=== PATIENT | female | born 1940 | race Caucasian/White ===

== ENCOUNTER 2016-10-13 04:58 | Inpatient (IN) | payer OTHER, MEDICARE ==
--- NOTE | 2016-09-25 09:55 | PAT Medication Instructions ---
Service Date Sep 25, 2016. Current Home Medication List Biotin (Biotin), 1 CAN PO QPM Cyanocobalamin (Vitamin B-12 Inj), 1,000 MCG IM MONTHLY Dorzolamide Hcl-Timolol Maleat (Cosopt Oph), 1 DROPS OP BID Hydrocortisone 2.5% (Rectal) (Anusol-Hc 2.5%), 1 APPLN TOP DAILY PRN for hemorrhoids Krill Oil (Krill Oil), 500 MG PO QPM Levothyroxine Sodium (Levothyroxine Sodium), 1 TAB PO QAM Polyethylene Glycol 3350 (Miralax), 17 GM PO DAILY PRN for Constipation Potassium Chloride (Micro-K Ext Rel), 30 MEQ PO NOON Probiotic Product (Probiotic & Acidophilus F), 1 CAP PO QAM Psyllium (Metamucil Fiber), 1 DOSE PO QD@16 Triamterene/Hctz (Maxzide 75MG/50MG), 1 TAB PO QAM Medication Instructions For Your Scheduled Surgery - Continue as directed: Cyanocobalamin (Vitamin B-12 Inj), 1,000 MCG IM MONTHLY Hydrocortisone 2.5% (Rectal) (Anusol-Hc 2.5%), 1 APPLN TOP DAILY PRN for hemorrhoids - Hold the following medications 2 weeks prior to surgery: Biotin (Biotin), 1 CAN PO QPM Krill Oil (Krill Oil), 500 MG PO QPM - Hold the following medications the morning of surgery: Potassium Chloride (Micro-K Ext Rel), 30 MEQ PO NOON Probiotic Product (Probiotic & Acidophilus F), 1 CAP PO QAM Triamterene/Hctz (Maxzide 75MG/50MG), 1 TAB PO QAM Polyethylene Glycol 3350 (Miralax), 17 GM PO DAILY PRN for Constipation - Take the following medications the morning of surgery with a sip of water OTHERWISE NOTHING TO EAT OR DRINK AFTER MIDNIGHT: Dorzolamide Hcl-Timolol Maleat (Cosopt Oph), 1 DROPS OP BID Levothyroxine Sodium (Levothyroxine Sodium), 1 TAB PO QAM - Take the following medications as scheduled the night before surgery: Dorzolamide Hcl-Timolol Maleat (Cosopt Oph), 1 DROPS OP BID Psyllium (Metamucil Fiber), 1 DOSE PO QD@16 If you have any questions please call us at [phone] or [phone] or [phone]
[2016-09-25 10:38] LABS: BASO % 0.9 %; BASO ABS # 0.05 K/uL (0-0.2); COMPLETE YES; EOS % 5.6 %; HEMATOCRIT 43.7 % (37-47); IG% 0.4 %; LYMPH % 13.3 %; LYMPH ABS # 0.71 K/uL (1.2-3.4); MEAN CELL VOLUME 87.8 fL (80-100); MEAN CORPUSCULAR HEMOGLOBIN 29.7 pg (25-34); MEAN CORPUSCULAR HGB CONC 33.9 g/dl (32-36); MONO % 9.9 %; NEUT % 69.9 %; PLATELET COUNT 196 K/uL (130-400); RED BLOOD COUNT 4.98 M/uL (4.2-5.4); WHITE BLOOD COUNT 5.33 K/uL (4.8-10.8)
[2016-09-25 10:40] LABS: URINE APPEARANCE CLEAR (CLEAR); URINE BILIRUBIN NEG (NEG); URINE COLOR YELLOW; URINE NITRITE NEG (NEG); URINE PH 7.5 (4.5-7.5); UROBILINOGEN NEG (NEG); ZZUR CULT IF INDIC CLEAN CATCH NO
[2016-09-25 10:45] LABS: BUN/CREATININE RATIO 23.5 (10-20); CALCIUM 9.6 mg/dl (8.5-10.1); PARTIAL THROMBOPLASTIN RATIO 1.1; POTASSIUM 3.5 mmol/L (3.5-5.1); PROTHROMBIN TIME (PATIENT) 10.8 SECONDS (9.0-12.0)
[2016-09-25 10:53] LABS: MANUAL MICROSCOPIC REQUIRED? NO; REVIEW REQ? NO
[2016-09-25 10:58] LABS: ESTIMATED AVERAGE GLUCOSE 97 mg/dl; HA1C FLAG Normal (Normal)
--- NOTE | 2016-09-25 11:11 | DIAGNOSTIC IMAGING REPORT ---
CHEST PREADMISSION(PA/LAT) CLINICAL HISTORY: PAT preoperative evaluation COMPARISON STUDY: 12/19/2012 FINDINGS: Mild chronic interstitial fibrotic change. No focal infiltrative change. Diaphragms smooth. Calcific angles are sharp. IMPRESSION: Chronic change. No acute process. The above report was generated using voice recognition software. It may contain grammatical, syntax or spelling errors. Electronically signed by: Jack Morelos M.D. 09/25/2016 11:09 AM Dictated Date/Time: 09/25/2016 11:09 AM
--- NOTE | 2016-10-12 21:23 | HISTORY & PHYSICAL EXAMINATION ---
DATE OF ADMISSION: 10/13/2016 CHIEF COMPLAINT: Chronic right knee pain. HISTORY OF PRESENT ILLNESS: This is a 76-year-old female patient of Dr. Bansal, complaining of chronic right knee pain longstanding, now progressively getting worse. The patient has been diagnosed with end-stage osteoarthritis per clinical and radiographic exams. The patient has increased pain with weightbearing activities and her pain does interfere with her activities of daily living. 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 She has had a history of skin cancer. SOCIAL HISTORY: Nonsmoker, nondrinker. PAST SURGICAL HISTORY: Left knee surgery. FAMILY HISTORY: Noncontributory. REVIEW OF SYSTEMS: The patient complains of chronic right knee pain, otherwise denies any shortness of breath, chest pain, nausea, vomiting or joint complaints. MEDICATIONS: 1. Potassium 10 mEq t.i.d. 2. Levoxyl 88 mcg daily. 3. Hydrocortisone 2.5% administered through rectum at bedtime. 4. Maxzide daily. 5. Metamucil 1 scoop in 8 ounces of water daily. 6. MiraLax as needed. 7. Krill oil as needed. 8. Biotin 5000 mcg as needed. 9. Cosopt ophthalmic solution 22.3/6.8 1 drop in each eye twice daily. 10. Vitamin B12 daily. ALLERGIES: DARVOCET, ALENDRONATE SODIUM, MOLDS AND SMUT -- COUGH. PHYSICAL EXAMINATION: GENERAL: Well-developed, well-nourished 76-year-old female in no acute distress. She is alert and oriented x3 and pleasant. HEENT: Normocephalic, atraumatic. Extraocular motions are intact. Pupils are equal and reactive to light. HEART: Regular rate and rhythm, no murmurs appreciated. LUNGS: Clear. ABDOMEN: Soft and nontender. EXTREMITIES: She has medial joint line tenderness with a varus deformity. She has crepitation with passive range of motion. She has a mild effusion in her knee, she has 4/5 strength globally. NEUROLOGIC: Neurovascularly, she is intact in her right lower extremity. DIAGNOSES: Right knee end-stage osteoarthritis with a history of hypertension, irregular heart beat, anxiety, hypothyroidism, pernicious anemia, spine problems, upper back problems, sciatica, hernia, obesity, decreased glomerular filtration rate, cancer. PLAN: The patient was advised of her diagnosis. Indications, risks, benefits, and postop course have all been reviewed. The patient wishes to proceed with a right total knee arthroplasty. Preoperative consent forms, preoperative testing and clearances will be obtained.
[2016-10-13] VITALS (9 sets, daily range): BP systolic 97–132; BP diastolic 57–81; PULSE 49–65; TEMP 35–36.6; O2SAT 93–97; Ht 160 cm; Wt 78.7 kg
[~2016-10-13] VITALS: Ht 160 cm; Wt 78.7 kg
[~2016-10-13 04:58] MED LIST: BIOT50006 PO; CYAN3INJ IM; DORZ1SOL6 OP; HYDR2.5C37 TOP; KRIL1000 PO; LEVO88TA3 PO; MISCCAP77 PO; POLY335019 PO; POTA10CA28 PO; PSYL58.636 PO; TRIA75TA53 PO
[2016-10-13] MEDS ORDERED: CEFAZOLIN 1000MG/55 ML D5W 55 ML IV SCH (06:00)
[2016-10-13] MEDS ORDERED: ACETAMINOPHEN 500 MG TAB PO SCH (06:00)
[2016-10-13] MEDS ORDERED: CeleBREX 200 MG CAP PO SCH (06:00)
[2016-10-13] MEDS ORDERED: GABAPENTIN 300 MG CAP PO SCH (06:00)
[2016-10-13] MEDS ORDERED: METOCLOPRAMIDE HCL 10 MG TAB PO SCH (06:00)
[2016-10-13] MEDS ORDERED: DEXAMETHASONE 4 MG TAB PO SCH (06:00)
[2016-10-13] MEDS ORDERED: FAMOTIDINE 20 MG TAB PO SCH (06:00)
[2016-10-13] MEDS ORDERED: ROPIVACAINE 5MG/ML 30 ML 150 MG, BUPIVACAINE/EPINEPHR 0.5% MPF 30 ML, KETOROLAC TROMETH... INFIL SCH ×7 (06:00)
[2016-10-13] MEDS ORDERED: LACTATED RINGER'S 1000ML IV SCH (06:00)
[2016-10-13] MEDS ORDERED: BUPIVACAINE 0.5 % 5 MG/1 ML PF 10ML VIAL ONE (06:28)
[2016-10-13] MEDS ORDERED: BUPIVACAINE 0.25% 30 ML VIAL ONE (06:28)
[2016-10-13] MEDS: TRANEXAMIC ACID INJ 1,000 MG in SODIUM CHLORIDE 0.9% 100ML 100 ML IV SCH ×2 (06:30→07:08)
[2016-10-13] MEDS ORDERED: MIDAZOLAM HCL 1 MG/ML 2ML VIAL ONE ×2 (06:47)
[2016-10-13] MEDS ORDERED: FENTANYL CITRATE INJ 50 MCG/1 ML 2 ML VIAL ONE (06:47)
[2016-10-13] MEDS ORDERED: LIDOCAINE HCL 2% 2 ML VIAL (20MG/ML) ONE ×2 (06:54→08:06)
[2016-10-13] MEDS ORDERED: MEPERIDINE HCL 25 MG/ML CARP IV PRN (07:00)
[2016-10-13] MEDS ORDERED: HYDROmorphone INJ 1 MG/ML SYR IV PRN (07:00)
[2016-10-13] MEDS ORDERED: EpHEDrine SULFATE INJ 50 MG/ML AMP IV PRN (07:00)
[2016-10-13] MEDS ORDERED: LABETALOL HCL IV 5 MG/ML 20ML IV PRN (07:00)
[2016-10-13] MEDS ORDERED: ONDANSETRON INJ 2 MG/ML 2 ML VIAL IV PRN ×2 (07:00→09:15)
[2016-10-13] MEDS ORDERED: FENTANYL CITRATE INJ 50 MCG/1 ML 2 ML VIAL IV PRN (07:00)
[2016-10-13] MEDS ORDERED: ATROPINE SULFATE 0.1 MG/ML 5ML SYR IV PRN (07:00)
--- NOTE | 2016-10-13 07:16 | History & Physical Bridge Note ---
H&P Re-Evaluation Bridge Note: I have examined the patient, reviewed the History & Physical and in the interval since the performance of the History & Physical I have noted the following changes of clinical significance: No changes noted
[2016-10-13] MEDS ORDERED: ORTHO JOINT ANESTHETIC ONE (07:35)
[2016-10-13] MEDS ORDERED: POVIDONE-IODINE OP SOLN 30 ML BTL ONE (07:35)
[2016-10-13] MEDS ORDERED: BACITRACIN 50000 UNIT VIAL ONE (07:35)
[2016-10-13] MEDS ORDERED: PROPOFOL IV EMULSION 10 MG/ML 20 ML VIAL IV ONE (08:06)
[2016-10-13] MEDS ORDERED: ONDANSETRON INJ 2 MG/ML 2 ML VIAL ONE (08:06)
[2016-10-13] MEDS ORDERED: ROCURONIUM BROMIDE 10 MG/ML 5 ML VIAL IV ONE (08:06)
[2016-10-13] MEDS ORDERED: DEXAMETHASONE SOD INJ 4 MG/ML VIAL ONE (08:06)
[2016-10-13] MEDS ORDERED: EpHEDrine SULFATE 50MG/5ML SYR ONE (08:06)
[2016-10-13] MEDS ORDERED: GLYCOPYRROLATE INJ 0.2 MG/ML VIAL ONE (08:31)
[2016-10-13] MEDS ORDERED: NEOSTIGMINE METHYLSULFATE 5 MG/5 ML SYR ONE (08:31)
[2016-10-13] MEDS ORDERED: MAGNESIUM HYDROXIDE SUSP 30 ML UDC PO PRN (09:15)
--- NOTE | 2016-10-13 09:21 | [facility] Operative Report ---
Operative Report Operative Date Oct 13, 2016. Pre-Operative Diagnosis Right knee end-stage osteoarthritis Post-Operative Diagnosis same Procedure(s) Performed Right total knee arthroplasty Surgeon Dr. Ortiz Final Assembly And Packing Supervisor Surgeon(s) Adele De PA-C Estimated Blood Loss 5cc Findings Varus knee [id number] medial compartment and patellofemoral joint Specimens A. Right knee bone and tissue Drains 2 Hemovac Anesthesia Gen. adductor nerve block orthomix Complication(s) None Disposition Recovery Room / PACU Indications 76-year-old female with end-stage osteoarthritis of her knee right lower extremity status post previous left knee replacement. X-rays demonstrate varus knee [id number] medial compartment and moderately advanced patellofemoral DJD. Description of Procedure The patient was taken to the operating room and anesthetized under general anesthesia. Patient was placed supine on the the operating table. A pneumatic tourniquet was placed about the right upper thigh. The knee exam demonstrated flexible knee good range of motion aside from slight flexion contracture about 5 . An anterior longitudinal incision was made across the knee. Skin flaps were elevated. An incision was made into the medial retinaculum and extended up into the mid third of the quadriceps tendon and extended down to the tibial tubercle. Intra-articular findings demonstrated medial compartment bone-on- bone medial patella down to bone on medial facet and [id number] medial patellofemoral joint. The knee was exposed by excising cruciate ligaments and menisci. The infrapatellar fat pad was resected. The fat pad over the anterior femur at the upper aspect of the articular surface was resected for placement of the component in that area. A subperiosteal peel lateral release was performed around the patella The total knee arthroplasty system was utilized for the procedure. The custom femoral cutting guide was pinned in position. The distal femoral cut was made. The size 4, 5 in 1 cutting block was placed. The anterior posterior and chamfer cuts were made. The knee was extended and a free hand cut technique was performed to the patella. The patella with was measured and the width was reproduced using a 35 mm patella component. 3 drill holes are made for the patella component pegs. The tibia was then subluxed. The custom tibial cutting block was pinned in position and the proximal tibial cut was made with the oscillating saw. The size 4 tibial trial was externally rotated in line with the tibial tubercle and pinned in position. The punch for the stem was used and the collet was placed. Tibial trials were used for the insert. The size 13 trial gave balanced ligaments through full range of motion. Patella tracking was assessed with range of motion. The patella tracked centrally. The trials were removed. The Orthomix anesthetic cocktail was injected per protocol. The cut bone surfaces and soft tissue were copiously irrigated with antibiotic solution with bacitracin. The final components were cemented with Simplex cement. The final components were Saul and nephew journey 2.0 size 4 Oxinium right femoral component posterior stabilized with 4 primary tibial baseplate and 13 mm high flex polyethylene insert and 35 mm patella button domed. While the cement cured the Betadine soak was used per protocol. When the cement cured the knee was copiously irrigated with pulsatile lavage antibiotic solution with bacitracin. 2 drains were brought out laterally connected to Hemovac. The quadriceps tendon and medial retinaculum were closed with interrupted [id number] #1 Vicryl sutures. The knee was taken through full range of motion and repair was secure. The subcutaneous tissues were closed with 2-0 Vicryl sutures. The skin was closed with beau. A sterile dressing was applied. The tourniquet was let down and the patient had good capillary refill to the extremity. The patient tolerated the procedure well. My physician evaluation assistant Olman MATTSON assisted in the procedure including prepping draping leg positioning soft tissue retraction instrument management and assisted in the closure ,dressings application and will participate in postoperative care the patient. I attest to the content of the Intraoperative Record and any orders documented therein. Any exceptions are noted below.
--- NOTE | 2016-10-13 09:58 | DIAGNOSTIC IMAGING REPORT ---
RIGHT KNEE 1 OR 2 VIEWS ROUTINE HISTORY: 76 years-old Female AP/LATERAL IN PACU RIGHT KNEE Right COMPARISON: Spot fluoroscopic images of the right knee 03/04/2012 TECHNIQUE: Portable frontal and lateral views of the right knee FINDINGS: There has been recent right total knee arthroplasty with patellar resurfacing. There is no evidence of periprosthetic fracture or malalignment. Midline anterior skin beau are present along with expected postsurgical soft tissue swelling and deep tissue air. Surgical drain is in place. IMPRESSION: Status post left knee total joint arthroplasty and patellar resurfacing without complication identified. The above report was generated using voice recognition software. It may contain grammatical, syntax or spelling errors. Electronically signed by: Nicholas Mcclellan M.D. 10/13/2016 9:57 AM Dictated Date/Time: 10/13/2016 9:56 AM
--- NOTE | 2016-10-13 10:31 | Anesthesiology Progress Note ---
Anesthesia Post Op Note Date & Time Oct 13, 2016 at 10:31 Vital Signs Pain Intensity: 0 Vital Signs Past 12 Hours Date Time Temp Pulse Resp B/P (MAP) Pulse Ox O2 Delivery O2 Flow Rate FiO2 10/13/16 09:55 36.2 56 16 102/59 96 Oxymask 5 10/13/16 09:45 56 16 103/53 96 Oxymask 5 10/13/16 09:35 56 16 106/51 96 Oxymask 5 10/13/16 09:25 59 16 103/59 96 Oxymask 5 10/13/16 09:18 36.1 61 16 97/62 93 Oxymask 5 10/13/16 06:04 36.4 58 20 132/81 96 Room Air Notes Mental Status: alert / awake / arousable, participated in evaluation Pt Amnestic to Procedure: Yes Nausea / Vomiting: adequately controlled Pain: adequately controlled Airway Patency, RR, SpO2: stable & adequate BP & HR: stable & adequate Hydration State: stable & adequate Anesthetic Complications: no major complications apparent
[2016-10-13] MEDS: D5W AND 1/2NSS + 20MEQ KCL 1,000 ML IV SCH ×2 (12:08→21:05)
[2016-10-13] MEDS ORDERED: COUGH DROP (SUGAR FREE) LOZ 24 LOZ/1 BOX PO PRN (12:30)
[2016-10-13] MEDS: ACETAMINOPHEN 500 MG TAB PO SCH ×2 (13:28→22:15)
[2016-10-13] MEDS: CEFAZOLIN IV 1,000 MG in DEXTROSE 5% 50ML 50 ML IV SCH (16:05)
[2016-10-13] MEDS: FERROUS GLUCONATE 324 MG TAB PO SCH (18:07)
[2016-10-13] MEDS: DORZOLAMIDE/TIMOLOL 22.3/6.8MG/ML 10 ML BTL OP SCH (21:02)
[2016-10-13] MEDS: CeleBREX 200 MG CAP PO SCH (21:03)
[2016-10-13] MEDS: ASPIRIN 81 MG ECTAB PO SCH (21:04)
[2016-10-13] MEDS: OXYCODONE HCL 10 MG TABCR (OXYCONTIN) PO SCH (21:04)
[2016-10-13] MEDS: DOCUSATE SODIUM 100 MG CAP PO SCH (21:04)
--- NOTE | 2016-10-13 22:16 | Medical Consult ---
Consultation Date of Consultation: Oct 13, 2016 . Attending Physician: Fareed Ortiz M.D. . Reason for Consultation: Medical management . History of Present Illness 76-year-old female followed by Dr. Joann Reyes. History of hypertension and other problems as noted below. Right total knee arthroplasty performed today by Dr. Ortiz. Doing well postoperatively. No chest pain. No cough or dyspnea. No nausea or vomiting. No [place] catheter. Postop pain well-controlled. . Past Medical/Surgical History Chronic and Resolved Medical Problems: (1) CKD (chronic kidney disease), stage III Status: Chronic (2) Diverticulosis of colon Status: Chronic (3) Dyslipidemia Status: Chronic (4) GERD (gastroesophageal reflux disease) Status: Chronic (5) History of colon cancer Status: Chronic (6) Hypertension Status: Chronic (7) Hypothyroidism Status: Chronic (8) Osteoporosis Status: Chronic Surgical Problems: (1) Status post cholecystectomy Status: Chronic (2) Status post left knee replacement Status: Chronic (3) Status post partial resection of colon Permanent Comment: right hemicolectomy 2012 Dr. Scott adenocarcinoma Status: Chronic (4) Status post right oophorectomy Status: Chronic . Family History FATHER Lymphoma Stroke MOTHER Colon cancer Heart disease Hypertension SISTER Diabetes mellitus Stroke Relation not specified for: Glaucoma Social History Smoking Status: Never Smoker Alcohol Use: none Drug Use: none Marital Status: Housing Status: lives with significant other Occupation Status: retired Allergies Coded Allergies: Propoxyphene (Verified Allergy, Intermediate, RASH,LIGHTHEADED,PUFFY AND RED FACE, 10/13/16) Alendronate (Verified Allergy, Unknown, COULDN'T SWALLOW, 10/13/16) Latex1 -Allergic Contact Dermititis (Verified Allergy, Unknown, PER NURSING ASSESSMENT (PLEASE CLARIFY WITH PATIENT), 10/13/16) POLLEN (Verified Adverse Reaction, Intermediate, POST NASAL DRIP, 10/13/16) Adhesives (Verified Adverse Reaction, Mild, RASH WITH OLDER TAPE-PAPER TAPE OK, 10/13/16) Home Medications Reported Home Medications Medications Dose Route/Sig Max Daily Dose Days Date Category Dose Instructions Miralax (Polyethylene Glycol 3350) 1 Pow Pow 17 Gm PO DAILY PRN 09/25/16 Reported Metamucil Fiber (Psyllium) 51.7 % Sid 1 Dose PO QD@16 09/25/16 Reported Maxzide 75MG/50MG (Triamterene/HCTZ) Tab 1 Tab PO QAM 09/25/16 Reported Anusol-Hc 2.5% (Hydrocortisone 2.5% (Rectal)) 2.5 % Cre 1 Appln TOP DAILY PRN 7 09/25/16 Reported Biotin 5,000 Mcg Sub 1 Can PO QPM 09/25/16 Reported Probiotic & Acidophilus F (Probiotic Product) 1 Cap Cap 1 Cap PO QAM 12/06/15 Reported Cosopt Oph (Dorzolamide Hcl-Timolol Maleat) 1 Lucy Lucy 1 Drops OP BID 11/21/15 Reported Krill Oil 1 Cap Cap 500 Mg PO QPM 11/21/15 Reported Levothyroxine Sodium 88 Mcg Tab 1 Tab PO QAM 90 11/21/15 Reported Micro-K Ext Rel (Potassium Chloride) 10 Meq Capcr 30 Meq PO NOON 11/21/15 Reported Vitamin B-12 Inj (Cyanocobalamin) Inj 1,000 Mcg IM MONTHLY 11/19/09 Reported takes on Wednesday of the month Current Inpatient Medications Current Inpatient Medications Medications (Trade) Dose Ordered Sig/Anna Route Start Time Stop Time Status Last Admin Dose Admin Lactated Ringer's 1,000 ml @ 60 mls/hr [id number] IV 10/13/16 06:00 10/13/16 22:39 10/13/16 06:04 60 MLS/HR Potassium Chloride/Dextrose/ Sod Cl 1,000 ml @ 100 mls/hr Q10H IV 10/13/16 11:30 10/14/16 11:29 10/13/16 21:05 100 MLS/HR Cefazolin Sodium 1000 mg/Dextrose 55 ml @ 100 mls/hr Q8H IV 10/13/16 16:00 10/14/16 00:32 10/13/16 16:05 100 MLS/HR Celecoxib (CeleBREX CAP) 200 mg BID PO 10/13/16 21:00 11/12/16 20:59 10/13/16 21:03 200 MG Oxycodone HCl (Roxicodone Immediate Rel Tab) 1 TABLET FOR PAIN RATING... Q4H PRN PO 10/13/16 09:15 10/27/16 09:14 Oxycodone HCl (Oxycontin Tab) 10 mg Q12 PO 10/13/16 21:00 10/27/16 20:59 10/13/16 21:04 10 MG Acetaminophen (Tylenol Tab) 1,000 mg Q8H PO 10/13/16 14:00 11/12/16 13:59 10/13/16 13:28 1,000 MG Magnesium Hydroxide (Milk Of Magnesia Susp) 30 ml Q6H PRN PO 10/13/16 09:15 11/12/16 09:14 Docusate Sodium (coLACE CAP) 100 mg BID PO 10/13/16 21:00 11/12/16 20:59 10/13/16 21:04 100 MG Diphenhydramine HCl (Benadryl Cap) 25 mg Q8H PRN PO 10/13/16 09:15 11/12/16 09:14 Multivitamins (Multivitamin Tab) 1 tab QAM PO 10/14/16 09:00 11/13/16 08:59 Ondansetron HCl (Zofran Inj) 4 mg Q6H PRN IV 10/13/16 09:15 11/12/16 09:14 Ferrous Gluconate (Ferrous Gluconate Tab) 324 mg TIDM PO 10/13/16 17:45 11/12/16 17:44 10/13/16 18:07 324 MG Pantoprazole Sodium (Protonix Tab) 40 mg QAM PO 10/14/16 09:00 11/13/16 08:59 Aspirin (Ecotrin Tab) 81 mg BID PO 10/13/16 21:00 11/12/16 20:59 10/13/16 21:04 81 MG Dorzolamide/ Timolol (Cosopt Op Soln) 1 drops BID OP 10/13/16 21:00 11/12/16 20:59 10/13/16 21:02 1 DROPS Levothyroxine Sodium (Synthroid Tab) 88 mcg DAILYBB PO 10/14/16 06:00 11/13/16 05:59 Potassium Chloride (Klor-Con M10) 30 meq DAILY PO 10/14/16 09:00 11/13/16 08:59 Triamterene/HCTZ (Maxzide 37.5/25 Tab) 2 tab QAM PO 10/14/16 09:00 11/13/16 08:59 Menthol (Nice Charo) 1 charo PRN PRN PO 10/13/16 12:30 11/12/16 12:29 10/13/16 13:27 1 CHARO Review of Systems Constitutional: No fever Respiratory: No cough, No shortness of breath Cardiovascular: + edema (mild), No chest pain Abdomen: No nausea, No vomiting, No diarrhea, No constipation, No GI bleeding Musculoskeletal: + joint pain Genitourinary - Female: No dysuria, No hematuria Hematologic / Lymphatic: No abnormal bleeding/bruising Physical Exam Date Time Temp Pulse Resp B/P (MAP) Pulse Ox O2 Delivery O2 Flow Rate FiO2 10/13/16 18:59 36.6 60 17 114/68 (83) 97 Room Air 10/13/16 15:30 Room Air 10/13/16 14:54 36.4 62 17 103/62 (76) 93 Room Air 10/13/16 13:20 65 16 112/69 (83) 95 Room Air 10/13/16 12:16 36.3 55 16 111/60 (77) 10/13/16 11:34 36.6 56 16 99/61 (74) 10/13/16 10:57 49 16 97/57 (70) 94 Nasal Cannula 3.0 10/13/16 10:20 35.0 51 16 98/60 (73) 94 Nasal Cannula 2.0 10/13/16 10:20 94 Nasal Cannula 2.0 10/13/16 10:20 94 Nasal Cannula 2.0 10/13/16 09:55 36.2 56 16 102/59 96 Oxymask 5 10/13/16 09:45 56 16 103/53 96 Oxymask 5 10/13/16 09:35 56 16 106/51 96 Oxymask 5 10/13/16 09:25 59 16 103/59 96 Oxymask 5 10/13/16 09:18 36.1 61 16 97/62 93 Oxymask 5 10/13/16 06:04 36.4 58 20 132/81 96 Room Air General Appearance: WD/WN, no apparent distress Head: normocephalic, atraumatic Eyes: normal inspection, PERRL, EOMI, sclerae normal ENT: hearing grossly normal, pharynx normal, + pertinent finding (upper dentures; lower partial plate) Neck: supple, no adenopathy, thyroid normal, no JVD, trachea midline Respiratory/Chest: lungs clear, no respiratory distress, no accessory muscle use Cardiovascular: regular rate, rhythm, no gallop, no JVD, no murmur, + pertinent finding (trace pretibial edema) Abdomen/GI: normal bowel sounds, non tender, soft, no organomegaly Extremities/Musculoskelatal: no calf tenderness, + pertinent finding (SVETLANA stockings applied; right knee wrapped; trace pretibial edema) Neurologic/Psych: model builder display II-XII nml as tested (PERRL, EOMI, no facial palsy, no dysarthria), no motor/sensory deficits (motor testing limited, grossly intact), alert, normal mood/affect, oriented x 3 Skin: normal color, warm/dry Lymphatic: no adenopathy (cervical) Laboratory Results Preadmission testing 09/25/16: Item Value Date Time Hemoglobin 14.8 g/dL 09/25/16 1002 Hematocrit 43.7 % 09/25/16 1002 White Blood Count 5.33 K/uL 09/25/16 1002 Platelet Count 196 K/uL 09/25/16 1002 Prothrombin Time 10.8 SECONDS 09/25/16 1002 Prothromb Time International Ratio 1.0 09/25/16 1002 Activated Partial Thromboplast Time 28.3 SECONDS 09/25/16 1002 Sodium Level 137 mmol/L 09/25/16 1002 Potassium Level 3.5 mmol/L 09/25/16 1002 Chloride Level 103 mmol/L 09/25/16 1002 Carbon Dioxide Level 28 mmol/L 09/25/16 1002 Blood Urea Nitrogen 24 mg/dl H 09/25/16 1002 Creatinine 1.00 mg/dl 09/25/16 1002 Random Glucose 89 mg/dl 09/25/16 1002 Urine Protein NEG 09/25/16 0000 Urine Glucose (UA) NEG 09/25/16 0000 Urine Ketones NEG 09/25/16 0000 Urine Occult Blood NEG 09/25/16 0000 Urine Nitrite NEG 09/25/16 0000 Urine Bilirubin NEG 09/25/16 0000 Urine Urobilinogen NEG 09/25/16 0000 Urine Leukocyte Esterase NEG 09/25/16 0000 CHEST PREADMISSION(PA/LAT) CLINICAL HISTORY: PAT preoperative evaluation COMPARISON STUDY: 12/19/2012 FINDINGS: Mild chronic interstitial fibrotic change. No focal infiltrative change. Diaphragms smooth. Calcific angles are sharp. IMPRESSION: Chronic change. No acute process. The above report was generated using voice recognition software. It may contain grammatical, syntax or spelling errors. Electronically signed by: Jack Morelos M.D. 09/25/2016 11:09 AM . Assessment & Plan S/P RIGHT TKA Doing well postoperatively. HYPERTENSION BP 103/62 this afternoon. Continue triamterene / HCTZ. HYPOTHYROIDISM Continue levothyroxine. VTE PROPHYLAXIS Per Ortho protocol. Thank you for this consultation. We will follow the patient with you during their hospital stay. You can reach a member of the [facility] Hospitalist Team 14/09 via pager @ . You can reach me via cell @ [phone]. .
[2016-10-14] MEDS: CEFAZOLIN IV 1,000 MG in DEXTROSE 5% 50ML 50 ML IV SCH (00:02)
[2016-10-14 03:55] VITALS: BP 135/77; PULSE 56; TEMP 36.4; O2SAT 99
[2016-10-14] MEDS: LEVOTHYROXINE 88 MCG TAB PO SCH (06:22)
[2016-10-14] MEDS: ACETAMINOPHEN 500 MG TAB PO SCH ×3 (06:22→22:00)
[2016-10-14 06:31] LABS: HEMATOCRIT 34.5 % (37-47); MEAN CELL VOLUME 86.3 fL (80-100); MEAN CORPUSCULAR HGB CONC 34.8 g/dl (32-36); MEAN PLATELET VOLUME 10.6 fL (7.4-10.4); PLATELET COUNT 156 K/uL (130-400)
[2016-10-14 07:11] LABS: BUN/CREATININE RATIO 17.7 (10-20); CALCIUM 7.9 mg/dl (8.5-10.1); CREATININE 1.3 mg/dl (0.60-1.20); POTASSIUM 3.8 mmol/L (3.5-5.1)
[2016-10-14] MEDS ORDERED: NURSING DECISION MEDICATION ORDER SCH (07:15)
[2016-10-14] MEDS ORDERED: SODIUM CHLORIDE 0.65% NA SOLN 45 ML (OCEAN) ONE (07:16)
[2016-10-14 07:19] VITALS: BP 126/76; PULSE 51; TEMP 36.5; O2SAT 98
--- NOTE | 2016-10-14 07:49 | Orthopedic Progress Note ---
Orthopedic Progress Note Date of Service Oct 14, 2016. Subjective Post OP Day: 1 Reports: feeling well, pain controlled w PO medications, Denies: complaints, chest pain, SOB, nausea / vomiting, light headedness, calf pain Additional Notes: Na+- 131 this AM Objective calves soft nontender, N/V intact, capillary refill less than 2 sec., dressing C /D/I, A&O x3, toes mobile Does have a foot drop, likely due to intra-op injection. Date Time Temp Pulse Resp B/P (MAP) Pulse Ox O2 Delivery O2 Flow Rate FiO2 10/14/16 07:19 36.5 51 18 126/76 (93) 98 Room Air 10/14/16 03:55 36.4 56 18 135/77 (96) 99 Room Air 10/14/16 00:05 Room Air 10/13/16 23:15 36.3 51 16 118/70 (86) 94 Room Air 10/13/16 18:59 36.6 60 17 114/68 (83) 97 Room Air 10/13/16 15:30 Room Air 10/13/16 14:54 36.4 62 17 103/62 (76) 93 Room Air 10/13/16 13:20 65 16 112/69 (83) 95 Room Air 10/13/16 12:16 36.3 55 16 111/60 (77) 10/13/16 11:34 36.6 56 16 99/61 (74) 10/13/16 10:57 49 16 97/57 (70) 94 Nasal Cannula 3.0 10/13/16 10:20 35.0 51 16 98/60 (73) 94 Nasal Cannula 2.0 10/13/16 10:20 94 Nasal Cannula 2.0 10/13/16 10:20 94 Nasal Cannula 2.0 10/13/16 09:55 36.2 56 16 102/59 96 Oxymask 5 10/13/16 09:45 56 16 103/53 96 Oxymask 5 10/13/16 09:35 56 16 106/51 96 Oxymask 5 10/13/16 09:25 59 16 103/59 96 Oxymask 5 10/13/16 09:18 36.1 61 16 97/62 93 Oxymask 5 Laboratory Results 24 Hours: Test 10/14/16 05:32 Hematocrit 34.5 % Hemoglobin 12.0 g/dL Assessment & Plan Assessment: Right TKA, POD #1 Right foot drop Plan: PT/ OT DVT proph- ASA D/C planning- HH As per medicine Observe foot drop through hospital course. Inhouse Planning Pain Management: Celebrex, Oxycontin, PO Tylenol, Oxy IR DVT Prophylaxis: TEDs, SCDs, ASA Discharge Planning Discharge Planning: home with home health Pain Management: Oxycontin, PO Tylenol, Oxy IR DVT Prophylaxis: TEDs, ASA Therapy: Physical Therapy, Occupational Therapy
--- NOTE | 2016-10-14 07:59 | Anesthesiology Progress Note ---
Anesthesia Post Op Note Date & Time Oct 14, 2016 at 07:58 Vital Signs Pain Intensity: 0.0 Vital Signs Past 12 Hours Date Time Temp Pulse Resp B/P (MAP) Pulse Ox O2 Delivery O2 Flow Rate FiO2 10/14/16 07:19 36.5 51 18 126/76 (93) 98 Room Air 10/14/16 03:55 36.4 56 18 135/77 (96) 99 Room Air 10/14/16 00:05 Room Air 10/13/16 23:15 36.3 51 16 118/70 (86) 94 Room Air Notes Mental Status: alert / awake / arousable, participated in evaluation Pt Amnestic to Procedure: Yes Nausea / Vomiting: adequately controlled Pain: adequately controlled Airway Patency, RR, SpO2: stable & adequate BP & HR: stable & adequate Hydration State: stable & adequate Anesthetic Complications: no major complications apparent
[2016-10-14] MEDS: DOCUSATE SODIUM 100 MG CAP PO SCH ×2 (08:42→20:30)
[2016-10-14] MEDS: D5W AND 1/2NSS + 20MEQ KCL 1,000 ML IV SCH (08:42)
[2016-10-14] MEDS: PANTOprazole SOD 40 MG TAB PO SCH (08:43)
[2016-10-14] MEDS: ASPIRIN 81 MG ECTAB PO SCH ×2 (08:43→20:30)
[2016-10-14] MEDS: FERROUS GLUCONATE 324 MG TAB PO SCH ×3 (08:44→17:41)
[2016-10-14] MEDS: TRIAMTERENE/HCTZ 37.5/25MG TAB PO SCH (08:46)
[2016-10-14] MEDS: MULTIVITAMIN TAB PO SCH (08:47)
[2016-10-14] MEDS: DORZOLAMIDE/TIMOLOL 22.3/6.8MG/ML 10 ML BTL OP SCH ×2 (08:49→20:29)
[2016-10-14] MEDS: POTASSIUM CHLORIDE 10 MEQ TABCR PO SCH (08:49)
[2016-10-14] MEDS: OXYCODONE HCL 10 MG TABCR (OXYCONTIN) PO SCH ×2 (08:53→20:26)
[2016-10-14] MEDS: OXYCODONE HCL IR 5 MG TAB (IMMEDIATE RELEASE) PO PRN (08:53)
[2016-10-14] MEDS: CeleBREX 200 MG CAP PO SCH (08:53)
[2016-10-14] MEDS ORDERED: SODIUM CHLORIDE 0.65% NA SOLN 45 ML (OCEAN) PRN (09:15)
[2016-10-14 15:25] VITALS: BP 110/65; PULSE 50; TEMP 36.4; O2SAT 97
[2016-10-14] MEDS ORDERED: SODIUM CHLORIDE 0.9% 500ML 500 ML IV SCH (19:15)
--- NOTE | 2016-10-14 19:52 | Progress Note ---
Medicine Progress Note Date & Time of Visit: Oct 14, 2016 at 19:10 . Subjective Experiencing nausea which she attributes to meds. PO intake not very good. No chest pain. No cough or SOB. No emesis. No BM yet. Mild urinary hesitancy, no dysuria. Moderate postop pain. . Objective Last 8 Hrs Date Time Temp Pulse Resp B/P (MAP) Pulse Ox O2 Delivery O2 Flow Rate FiO2 10/14/16 16:00 Room Air 10/14/16 15:25 36.4 50 14 110/65 (80) 97 Room Air Physical Exam: General- no distress Neck- no JVD Lungs- clear Heart- RRR Abdomen- + BS, soft, nontender Extremities- 1+ pretibial edema; right knee wrapped Neuro- alert . Laboratory Results: Last 24 Hours Test 10/14/16 05:32 White Blood Count 14.50 K/uL Red Blood Count 4.00 M/uL Hemoglobin 12.0 g/dL Hematocrit 34.5 % Mean Corpuscular Volume 86.3 fL Mean Corpuscular Hemoglobin 30.0 pg Mean Corpuscular Hemoglobin Concent 34.8 g/dl RDW Standard Deviation 42.3 fL RDW Coefficient of Variation 13.3 % Platelet Count 156 K/uL Mean Platelet Volume 10.6 fL Sodium Level 131 mmol/L Potassium Level 3.8 mmol/L Chloride Level 98 mmol/L Carbon Dioxide Level 25 mmol/L Anion Gap 8.0 mmol/L Blood Urea Nitrogen 23 mg/dl Creatinine 1.30 mg/dl Est Creatinine Clear Calc Drug Dose 35.4 ml/min Estimated GFR () 45.5 Estimated GFR (Non- 39.3 BUN/Creatinine Ratio 17.7 Random Glucose 120 mg/dl Calcium Level 7.9 mg/dl Assessment & Plan S/P RIGHT TKA Doing fairly well postoperatively. NAUSEA Patient would like to cut back on meds. Celebrex and FeSO4 could be causing symptoms. Change FeSO4 to once a day. Stop Celebrex. HYPERTENSION BP's today 126/76, 110/65. Hold triamterene / HCTZ due to nausea and rising creatinine. Follow. ELEVATED CREATININE Creatine 1.0 preop, 1.3 today. Stop Celebrex. Hold diuretic. IV NSS 500 ml tonight. Recheck PRP in a.m. HYPOTHYROIDISM Continue levothyroxine. VTE PROPHYLAXIS Per Ortho protocol. Thank you for this consultation. We will follow the patient with you during their hospital stay. You can reach a member of the [facility] Hospitalist Team 14/09 via pager @ . You can reach me via cell @ [phone]. . Current Inpatient Medications: Current Inpatient Medications Medications (Trade) Dose Ordered Sig/Anna Route Start Time Stop Time Status Last Admin Dose Admin Oxycodone HCl (Roxicodone Immediate Rel Tab) 1 TABLET FOR PAIN RATING... Q4H PRN PO 10/13/16 09:15 10/27/16 09:14 10/14/16 08:53 5 MG Oxycodone HCl (Oxycontin Tab) 10 mg Q12 PO 10/13/16 21:00 10/27/16 20:59 10/14/16 08:53 10 MG Acetaminophen (Tylenol Tab) 1,000 mg Q8H PO 10/13/16 14:00 11/12/16 13:59 10/14/16 06:22 1,000 MG Magnesium Hydroxide (Milk Of Magnesia Susp) 30 ml Q6H PRN PO 10/13/16 09:15 11/12/16 09:14 Docusate Sodium (coLACE CAP) 100 mg BID PO 10/13/16 21:00 11/12/16 20:59 10/14/16 08:42 100 MG Diphenhydramine HCl (Benadryl Cap) 25 mg Q8H PRN PO 10/13/16 09:15 11/12/16 09:14 Multivitamins (Multivitamin Tab) 1 tab QAM PO 10/14/16 09:00 11/13/16 08:59 10/14/16 08:47 1 TAB Ondansetron HCl (Zofran Inj) 4 mg Q6H PRN IV 10/13/16 09:15 11/12/16 09:14 10/14/16 15:49 4 MG Pantoprazole Sodium (Protonix Tab) 40 mg QAM PO 10/14/16 09:00 11/13/16 08:59 10/14/16 08:43 40 MG Aspirin (Ecotrin Tab) 81 mg BID PO 10/13/16 21:00 11/12/16 20:59 10/14/16 08:43 81 MG Dorzolamide/ Timolol (Cosopt Op Soln) 1 drops BID OP 10/13/16 21:00 11/12/16 20:59 10/14/16 08:49 1 DROPS Levothyroxine Sodium (Synthroid Tab) 88 mcg DAILYBB PO 10/14/16 06:00 11/13/16 05:59 10/14/16 06:22 88 MCG Potassium Chloride (Klor-Con M10) 30 meq DAILY PO 10/14/16 09:00 11/13/16 08:59 10/14/16 08:49 30 MEQ Triamterene/HCTZ (Maxzide 37.5/25 Tab) 2 tab QAM PO 10/14/16 09:00 11/13/16 08:59 Future Hold 10/14/16 08:46 2 TAB Menthol (Nice Charo) 1 charo PRN PRN PO 10/13/16 12:30 11/12/16 12:29 10/13/16 13:27 1 CHARO Sodium Chloride ([place] Nasal [place]) 1 sprays PRN PRN NA 10/14/16 09:15 11/13/16 09:14 Ferrous Gluconate (Ferrous Gluconate Tab) 324 mg DAILY@1200 PO 10/15/16 12:00 11/12/16 17:44 Sodium Chloride 500 ml @ 250 mls/hr Q2H IV 10/14/16 19:15 10/14/16 21:14
[2016-10-14 23:00] VITALS: BP 106/67; PULSE 55; TEMP 36.4; O2SAT 99
[2016-10-15] MEDS: LEVOTHYROXINE 88 MCG TAB PO SCH (06:14)
[2016-10-15] MEDS: ACETAMINOPHEN 500 MG TAB PO SCH ×3 (06:15→21:43)
[2016-10-15 06:57] VITALS: BP 116/70; PULSE 52; TEMP 36.7; O2SAT 98
[2016-10-15 06:59] LABS: BUN/CREATININE RATIO 19.7 (10-20); POTASSIUM 3.7 mmol/L (3.5-5.1)
[2016-10-15] MEDS: DOCUSATE SODIUM 100 MG CAP PO SCH ×2 (07:28→20:52)
[2016-10-15] MEDS: PANTOprazole SOD 40 MG TAB PO SCH (07:28)
[2016-10-15] MEDS: MULTIVITAMIN TAB PO SCH (07:28)
[2016-10-15] MEDS: ASPIRIN 81 MG ECTAB PO SCH ×2 (07:28→20:52)
[2016-10-15] MEDS: POTASSIUM CHLORIDE 10 MEQ TABCR PO SCH (07:29)
[2016-10-15] MEDS: OXYCODONE HCL 10 MG TABCR (OXYCONTIN) PO SCH ×2 (07:30→20:57)
[2016-10-15] MEDS: DORZOLAMIDE/TIMOLOL 22.3/6.8MG/ML 10 ML BTL OP SCH ×2 (07:30→20:52)
--- NOTE | 2016-10-15 08:23 | Orthopedic Progress Note ---
Orthopedic Progress Note Date of Service Oct 15, 2016. Subjective Post OP Day: 2 Reports: feeling well, pain controlled w PO medications, Denies: complaints, chest pain, SOB, nausea / vomiting, light headedness, calf pain Additional Notes: Was having N/V yesterday, celebrex and FESO4 stopped States she is beginning to feel better with no N/V this AM Did well in PT Na+ 130 Objective calves soft nontender, N/V intact, capillary refill less than 2 sec., incision C /D/I, A&O x3, toes mobile Foot drop resolved, active planter and dorsi flexion in tact. Date Time Temp Pulse Resp B/P (MAP) Pulse Ox O2 Delivery O2 Flow Rate FiO2 10/15/16 07:43 Room Air 10/15/16 06:57 36.7 52 16 116/70 (85) 98 Room Air 10/14/16 23:55 Room Air 10/14/16 23:00 36.4 55 16 106/67 (80) 99 Room Air 10/14/16 16:00 Room Air 10/14/16 15:25 36.4 50 14 110/65 (80) 97 Room Air Assessment & Plan Assessment: Right TKA, POD #2 Right foot drop- resolved Post op N/V resolving. Plan: PT/ OT DVT proph- ASA D/C planning- HH likely Wednesday if N/V resolved throughout today As per medicine Inhouse Planning Pain Management: Oxycontin, PO Tylenol, Oxy IR DVT Prophylaxis: TEDs, SCDs, ASA Discharge Planning Discharge Planning: home with home health Pain Management: Oxycontin, PO Tylenol, Oxy IR DVT Prophylaxis: TEDs, ASA Therapy: Physical Therapy, Occupational Therapy
--- NOTE | 2016-10-15 08:25 | Discharge Instructions ---
Discharge Instructions Date of Service Oct 15, 2016. Admission Reason for Admission: Right Knee Osteoarthritis Discharge Discharge Diagnosis / Problem: Right TKA Discharge Goals Goal(s): Improve function Activity Recommendations Activity Limitations: as noted below . Instructions / Follow-Up Instructions / Follow-Up ACTIVITY RECOMMENDATIONS: SELF CARE INSTRUCTIONS AFTER TOTAL KNEE REPLACEMENT A. You may need to continue a physical therapy program after discharge from the hospital. There are several options available to you. Your doctor will assist you in selecting the best one for you. 1. An out-patient facility 2 to 3 times a week for therapy or home therapy. 2. Continue working on all exercises taught to you in the hospital. Your goals should be to increase bending of your knee to 90 degrees and beyond and to fully straighten your knee. B. You may progress at your own pace from walking with a walker or crutches to a cane; then to no assistive devices. C. Make walking a part of your daily routine. Be up as much as comfortable with rest periods throughout the day. Rest with leg elevation is very important. Use the ice wrap frequently for the first 3-4 weeks. D. There are no restrictions on activities. You may ride in a car, shop, participate in gis geographer and all social activities. E. Wear the long elastic stockings (SVETLANA hose) 20 hours a day for 2 weeks after surgery. They can be removed several times a day for laundering and for a bath. F. You may shower, no tub baths until cleared by your doctor. SPECIAL CARE INSTRUCTIONS: VERY IMPORTANT TO READ AND REVIEW A. There are a few signs you need to watch for after you are home. Call [facility] if you notice any of the followin. Increased severe knee pain. Some pain is expected especially when you exercise. 2. Increased swelling in your leg or knee; pain or swelling of the calf muscle in either lower leg. 3. Any fluid drainage from the incision. 4. Shortness of breath or chest pain. B. Please call [facility] at if you have any concerns or questions about your operation or recovery. The doctor or his nurse will return your call promptly. C. You must take antibiotics before dental work, bladder, bowel or other surgery. Your doctor will provide you with a permanent care to carry describing this precaution. IMPORTANT: * REMEMBER TO TAKE ASPIRIN, 81 MG, TWICE DAILY FOR 4 WEEKS UNLESS OTHERWISE DIRECTED. THIS IS YOUR BLOOD THINNER. * HIGH RISK PATIENTS MAY BE PRESCRIBED A STRONGER BLOOD THINNER. THIS WILL BE PROVIDED AT DISCHARGE. * CALL IF INCREASED PAIN, REDNESS, DRAINAGE OR FEVER GREATER THAT 101. * WEAR SVETLANA HOSE 20 HOURS PER DAY FOR 2 WEEKS. * YOU MAY HAVE A LARGE BAND-AID LIKE DRESSING (SILVERON). THIS WILL REMAIN ON YOUR INCISION FOR 7 DAYS, THEN CAN BE REMOVED. IF INCISION IS LEAKING THROUGH DRESSING, CALL THE OFFICE . FOLLOW UP VISIT: If appointment is not already scheduled: Please call [facility] to make a follow-up appointment for 2 weeks after your surgery at . Current Hospital Diet Patient's current hospital diet: Regular Diet Discharge Diet Recommended Diet: Regular Diet Procedures Procedures Performed: Right total knee arthroplasty Pending Studies Studies pending at discharge: no Laboratory Results Hemoglobin A1c Test 09/25/16 10:02 Range/Units Estimated Average Glucose 97 mg/dl Hemoglobin A1c 5.0 4.5-5.6 % Medical Emergencies . Who to Call and When: Medical Emergencies: If at any time you feel your situation is an emergency, please call 911 immediately. . Non-Emergent Contact Non-Emergency issues call your: Primary Care Provider . "Provider Documentation" section prepared by Jack Acosta. . VTE Core Measure Inpt VTE Proph given/why not?: Other Anticoagulation (asa), T.E.D. Stockings, SCD's [place] Drug Monitoring Program Search Results: patient reviewed within database, no issues identified
[2016-10-15] MEDS: TRIAMTERENE/HCTZ 37.5/25MG TAB PO SCH (10:51)
[2016-10-15] MEDS: FERROUS GLUCONATE 324 MG TAB PO SCH (12:34)
[2016-10-15 15:23] VITALS: BP 110/69; PULSE 55; TEMP 36.4; O2SAT 96
[2016-10-15 19:25] VITALS: BP 110/65; PULSE 63; TEMP 36.6; O2SAT 94
--- NOTE | 2016-10-15 21:31 | Progress Note ---
Medicine Progress Note Date & Time of Visit: Oct 15, 2016 at 10:25 . Subjective Doing well postoperatively. No chest pain. No cough or dyspnea. Nausea improved; no emesis. No bowel movement yet. Mild urinary hesitancy without dysuria. Postop pain well-controlled. . Objective Last 8 Hrs Date Time Temp Pulse Resp B/P (MAP) Pulse Ox O2 Delivery O2 Flow Rate FiO2 10/15/16 19:25 36.6 63 18 110/65 (80) 94 Room Air 10/15/16 15:23 36.4 55 18 110/69 (83) 96 Room Air Physical Exam: General- no distress Neck- no JVD Lungs- clear Heart- RRR Abdomen- + BS, soft, nontender Extremities- TEDS applied; 1+ pretibial edema; right knee wrapped Neuro- alert . Laboratory Results: Last 24 Hours Test 10/15/16 05:39 Sodium Level 130 mmol/L Potassium Level 3.7 mmol/L Chloride Level 97 mmol/L Carbon Dioxide Level 27 mmol/L Anion Gap 6.0 mmol/L Blood Urea Nitrogen 20 mg/dl Creatinine 1.00 mg/dl Est Creatinine Clear Calc Drug Dose 46.0 ml/min Estimated GFR () 62.5 Estimated GFR (Non- 53.9 BUN/Creatinine Ratio 19.7 Random Glucose 91 mg/dl Calcium Level 8.0 mg/dl Assessment & Plan S/P RIGHT TKA Doing fairly well postoperatively. NAUSEA Probably due to Celebrex and/or FeSO4. Changed FeSO4 to once a day. Stopped Celebrex. Improved. HYPERTENSION Blood pressure this morning 116/70. Continue triamterene / HCTZ. ELEVATED CREATININE Creatine 1.0 preop, 1.3 yesterday. Stopped Celebrex. Received IV NSS 500 ml. Serum creatinine this morning 1.0. Follow. HYPONATREMIA Serum sodium this morning 130. Recheck serum chemistries in the morning. LEUKOCYTOSIS WBC yesterday 14,000. No fever or signs of infection. Leukocytosis most likely secondary to perioperative steroids. HYPOTHYROIDISM Continue levothyroxine. VTE PROPHYLAXIS Per Ortho protocol. Thank you for this consultation. We will follow the patient with you during their hospital stay. You can reach a member of the [facility] Hospitalist Team 14/09 via pager @ [phone]. You can reach me via cell @ [phone]. . Current Inpatient Medications: Current Inpatient Medications Medications (Trade) Dose Ordered Sig/Anna Route Start Time Stop Time Status Last Admin Dose Admin Oxycodone HCl (Roxicodone Immediate Rel Tab) 1 TABLET FOR PAIN RATING... Q4H PRN PO 10/13/16 09:15 10/27/16 09:14 10/14/16 08:53 5 MG Oxycodone HCl (Oxycontin Tab) 10 mg Q12 PO 10/13/16 21:00 10/27/16 20:59 10/15/16 20:57 10 MG Acetaminophen (Tylenol Tab) 1,000 mg Q8H PO 10/13/16 14:00 11/12/16 13:59 10/15/16 12:35 1,000 MG Magnesium Hydroxide (Milk Of Magnesia Susp) 30 ml Q6H PRN PO 10/13/16 09:15 11/12/16 09:14 Docusate Sodium (coLACE CAP) 100 mg BID PO 10/13/16 21:00 11/12/16 20:59 10/15/16 20:52 100 MG Diphenhydramine HCl (Benadryl Cap) 25 mg Q8H PRN PO 10/13/16 09:15 11/12/16 09:14 Multivitamins (Multivitamin Tab) 1 tab QAM PO 10/14/16 09:00 11/13/16 08:59 10/15/16 07:28 1 TAB Ondansetron HCl (Zofran Inj) 4 mg Q6H PRN IV 10/13/16 09:15 11/12/16 09:14 10/14/16 15:49 4 MG Pantoprazole Sodium (Protonix Tab) 40 mg QAM PO 10/14/16 09:00 11/13/16 08:59 10/15/16 07:28 40 MG Aspirin (Ecotrin Tab) 81 mg BID PO 10/13/16 21:00 11/12/16 20:59 10/15/16 20:52 81 MG Dorzolamide/ Timolol (Cosopt Op Soln) 1 drops BID OP 10/13/16 21:00 11/12/16 20:59 10/15/16 20:52 1 DROPS Levothyroxine Sodium (Synthroid Tab) 88 mcg DAILYBB PO 10/14/16 06:00 11/13/16 05:59 10/15/16 06:14 88 MCG Potassium Chloride (Klor-Con M10) 30 meq DAILY PO 10/14/16 09:00 11/13/16 08:59 10/15/16 07:29 30 MEQ Triamterene/HCTZ (Maxzide 37.5/25 Tab) 2 tab QAM PO 10/14/16 09:00 11/13/16 08:59 Future hold 10/15/16 10:51 2 TAB Menthol (Nice Charo) 1 charo PRN PRN PO 10/13/16 12:30 11/12/16 12:29 10/13/16 13:27 1 CHARO Sodium Chloride ([place] Nasal [place]) 1 sprays PRN PRN NA 10/14/16 09:15 11/13/16 09:14 Ferrous Gluconate (Ferrous Gluconate Tab) 324 mg DAILY@1200 PO 10/15/16 12:00 11/12/16 17:44 10/15/16 12:34 324 MG
[2016-10-15 22:53] VITALS: BP 135/80; PULSE 71; TEMP 36.5; O2SAT 95
[2016-10-16] MEDS: OXYCODONE HCL IR 5 MG TAB (IMMEDIATE RELEASE) PO PRN ×3 (02:19→13:32)
[2016-10-16] MEDS: LEVOTHYROXINE 88 MCG TAB PO SCH (05:42)
[2016-10-16] MEDS: ACETAMINOPHEN 500 MG TAB PO SCH ×2 (05:42→13:31)
[2016-10-16 06:51] LABS: BUN/CREATININE RATIO 20.3 (10-20); CALCIUM 8.2 mg/dl (8.5-10.1); CREATININE 1.3 mg/dl (0.60-1.20); POTASSIUM 3.7 mmol/L (3.5-5.1)
[2016-10-16 08:13] VITALS: BP 106/64; PULSE 60; TEMP 36.8; O2SAT 94
[2016-10-16 08:29] VITALS: O2SAT 94
[2016-10-16] MEDS: ASPIRIN 81 MG ECTAB PO SCH (09:01)
[2016-10-16] MEDS: DOCUSATE SODIUM 100 MG CAP PO SCH (09:01)
[2016-10-16] MEDS: OXYCODONE HCL 10 MG TABCR (OXYCONTIN) PO SCH (09:01)
[2016-10-16] MEDS: DORZOLAMIDE/TIMOLOL 22.3/6.8MG/ML 10 ML BTL OP SCH (09:02)
[2016-10-16] MEDS: MULTIVITAMIN TAB PO SCH (09:03)
[2016-10-16] MEDS: POTASSIUM CHLORIDE 10 MEQ TABCR PO SCH (09:03)
[2016-10-16] MEDS: PANTOprazole SOD 40 MG TAB PO SCH (10:15)
[2016-10-16] MEDS: FERROUS GLUCONATE 324 MG TAB PO SCH (12:00)
--- NOTE | 2016-10-16 12:03 | Progress Note ---
Medicine Progress Note Date & Time of Visit: Oct 16, 2016 at 11:59 . Subjective Doing well. Discharge anticipated today. . Objective Last 8 Hrs Date Time Temp Pulse Resp B/P (MAP) Pulse Ox O2 Delivery O2 Flow Rate FiO2 10/16/16 08:29 94 Room Air 10/16/16 08:13 36.8 60 12 106/64 (78) 94 Room Air 10/16/16 07:40 Room Air Laboratory Results: Last 24 Hours Test 10/16/16 05:25 Sodium Level 136 mmol/L Potassium Level 3.7 mmol/L Chloride Level 102 mmol/L Carbon Dioxide Level 30 mmol/L Anion Gap 4.0 mmol/L Blood Urea Nitrogen 26 mg/dl Creatinine 1.30 mg/dl Est Creatinine Clear Calc Drug Dose 35.4 ml/min Estimated GFR () 45.5 Estimated GFR (Non- 39.3 BUN/Creatinine Ratio 20.3 Random Glucose 87 mg/dl Calcium Level 8.2 mg/dl Assessment & Plan S/P RIGHT TKA Doing fairly well postoperatively. NAUSEA Probably due to Celebrex and/or FeSO4. Changed FeSO4 to once a day. Stopped Celebrex. Improved. HYPERTENSION Continue triamterene / HCTZ upon discharge. ELEVATED CREATININE Creatinine fluctuating 1.0 - 1.3. Stopped Celebrex. Received IV NSS 500 ml. Patient states that fluid intake has been less than normal. Diuretic held this morning. Discharge on usual diuretic dose. Will ask PCP to recheck renal function in clinic. HYPONATREMIA Serum sodium 130 yesterday, 136 today. Follow. LEUKOCYTOSIS WBC yesterday 14,000. No fever or signs of infection. Leukocytosis most likely secondary to perioperative steroids. HYPOTHYROIDISM Continue levothyroxine. VTE PROPHYLAXIS Per Ortho protocol. DISPOSITION Discharge to home. Will arrange for medical follow-up and labs with Dr. Joann Reyes. Thank you for this consultation. We will follow the patient with you during their hospital stay. You can reach a member of the [facility] Hospitalist Team 14/09 via pager @ . You can reach me via cell @ [phone]. . Current Inpatient Medications: Current Inpatient Medications Medications (Trade) Dose Ordered Sig/Anna Route Start Time Stop Time Status Last Admin Dose Admin Oxycodone HCl (Roxicodone Immediate Rel Tab) 1 TABLET FOR PAIN RATING... Q4H PRN PO 10/13/16 09:15 10/27/16 09:14 10/16/16 09:02 5 MG Oxycodone HCl (Oxycontin Tab) 10 mg Q12 PO 10/13/16 21:00 10/27/16 20:59 10/16/16 09:01 10 MG Acetaminophen (Tylenol Tab) 1,000 mg Q8H PO 10/13/16 14:00 11/12/16 13:59 10/16/16 05:42 1,000 MG Magnesium Hydroxide (Milk Of Magnesia Susp) 30 ml Q6H PRN PO 10/13/16 09:15 11/12/16 09:14 Docusate Sodium (coLACE CAP) 100 mg BID PO 10/13/16 21:00 11/12/16 20:59 10/16/16 09:01 100 MG Diphenhydramine HCl (Benadryl Cap) 25 mg Q8H PRN PO 10/13/16 09:15 11/12/16 09:14 Multivitamins (Multivitamin Tab) 1 tab QAM PO 10/14/16 09:00 11/13/16 08:59 10/16/16 09:03 1 TAB Ondansetron HCl (Zofran Inj) 4 mg Q6H PRN IV 10/13/16 09:15 11/12/16 09:14 10/14/16 15:49 4 MG Pantoprazole Sodium (Protonix Tab) 40 mg QAM PO 10/14/16 09:00 11/13/16 08:59 10/16/16 10:15 40 MG Aspirin (Ecotrin Tab) 81 mg BID PO 10/13/16 21:00 11/12/16 20:59 10/16/16 09:01 81 MG Dorzolamide/ Timolol (Cosopt Op Soln) 1 drops BID OP 10/13/16 21:00 11/12/16 20:59 10/16/16 09:02 1 DROPS Levothyroxine Sodium (Synthroid Tab) 88 mcg DAILYBB PO 10/14/16 06:00 11/13/16 05:59 10/16/16 05:42 88 MCG Potassium Chloride (Klor-Con M10) 30 meq DAILY PO 10/14/16 09:00 11/13/16 08:59 10/16/16 09:03 30 MEQ Triamterene/HCTZ (Maxzide 37.5/25 Tab) 2 tab QAM PO 10/14/16 09:00 11/13/16 08:59 Future Hold 10/15/16 10:51 2 TAB Menthol (Nice Be) 1 be PRN PRN PO 10/13/16 12:30 11/12/16 12:29 10/13/16 13:27 1 BE Sodium Chloride ([place] Nasal [place]) 1 sprays PRN PRN NA 10/14/16 09:15 11/13/16 09:14 Ferrous Gluconate (Ferrous Gluconate Tab) 324 mg DAILY@1200 PO 10/15/16 12:00 11/12/16 17:44 10/15/16 12:34 324 MG
[2016-10-16 12:06] VITALS: BP 106/64; PULSE 60; TEMP 36.8; O2SAT 94
[2016-10-16] MEDS ORDERED: ACET-24 PO (12:11)
[2016-10-16] MEDS ORDERED: ASPEC81 PO (12:11)
[2016-10-16] MEDS ORDERED: OXYSR10 PO (12:11)
[2016-10-16] MEDS ORDERED: RXC5 PO (12:11)
[2016-10-16] MEDS ORDERED: ONDA8TAB6 PO (12:11)
--- NOTE | 2016-10-16 12:13 | Orthopedic Progress Note ---
Orthopedic Progress Note Date of Service Oct 16, 2016. Subjective Post OP Day: 3 Reports: feeling well, pain controlled w PO medications, Denies: complaints, nausea / vomiting, light headedness Objective calves soft nontender, N/V intact, capillary refill less than 2 sec., incision C /D/I, A&O x3, toes mobile Date Time Temp Pulse Resp B/P (MAP) Pulse Ox O2 Delivery O2 Flow Rate FiO2 10/16/16 12:06 36.8 60 12 94 Room Air 10/16/16 08:29 94 Room Air 10/16/16 08:13 36.8 60 12 106/64 (78) 94 Room Air 10/16/16 07:40 Room Air 10/15/16 23:27 Room Air 10/15/16 22:53 36.5 71 16 135/80 (98) 95 Room Air 10/15/16 19:25 36.6 63 18 110/65 (80) 94 Room Air 10/15/16 17:15 Room Air 10/15/16 15:23 36.4 55 18 110/69 (83) 96 Room Air Assessment & Plan Assessment: Right TKA, POD #3 Right foot drop- resolved Post op N/V resolved. Plan: PT/ OT DVT proph- ASA D/C planning- home with HH today Inhouse Planning Pain Management: Oxycontin, PO Tylenol, Oxy IR DVT Prophylaxis: TEDs, SCDs, ASA Discharge Planning Discharge Planning: home with home health Pain Management: Oxycontin, PO Tylenol, Oxy IR DVT Prophylaxis: TEDs, ASA Therapy: Physical Therapy, Occupational Therapy
--- NOTE | 2016-10-27 09:40 | DISCHARGE SUMMARY ---
DISCHARGE DIAGNOSIS: Degenerative joint disease, right knee. SECONDARY DIAGNOSIS: Chronic kidney disease. CONSULTS: Dr. Guallpa and Dr. Cabrera. COMPLICATIONS: None. PROCEDURE: The patient underwent a right total knee arthroplasty with Dr. Ortiz on 10/13/2016. BRIEF HISTORY: Please see previously dictated history and physical. HOSPITAL SUMMARY: The patient was admitted on the above day for the above procedure. Procedure went without complication. Postop day 1, the patient was feeling well without complaints. She denied chest pain or shortness of breath. Vital signs were stable. She was afebrile. Dressing was clean, dry and intact. She was neurovascularly intact. Calves were soft and nontender. Sodium was 131. The patient does have a small foot drop, likely from her intraoperative injection. Hemoglobin was 12.0. The patient began physical therapy per protocol. Postop day 2, the patient continued to improve. She was having some nausea yesterday, Celebrex and iron were stopped. She was feeling better. She did well in PT. Sodium was 130. Incision was clean, dry and intact. She was neurovascularly intact. Calves were soft and nontender. The patient's foot drop has resolved. She has active plantar and dorsiflexion. The patient continued to progress with physical therapy. Postop day 3, the patient is improving. She denied chest pain or shortness of breath. Vital signs were stable. She was afebrile. Incision was clean, dry and intact. She was neurovascularly intact. Calves were soft and nontender. The patient progressed with physical therapy. Her foot drop has resolved. She was discharged home with home PT. For further review, please see the chart. Lab, x-ray data and discharge instructions as per chart.
== END 2016-10-16 14:08 | disposition home health service (06) | DRG 470 ==
LOC: C.ACU 04:58 → C.3E 06:35 → ENRESERV 09:36
PROVIDERS: ADMIT Orthopaedic Surgery Sports Medicine; ATTEND Orthopaedic Surgery Sports Medicine
PROC: 0SRC0J9 Replacement of Right Knee Joint with Synthetic Substitute, Cemented, Open Approach (ICD-10-PCS; principal; 2016-10-13 07:15)
DX: M17.11 Unilateral primary osteoarthritis, right knee (principal); I12.9 Hypertensive chronic kidney disease with stage 1 through stage 4 chronic kidney disease, or unspecified chronic kidney disease; E87.1 Hypo-osmolality and hyponatremia; E03.9 Hypothyroidism, unspecified; D51.0 Vitamin B12 deficiency anemia due to intrinsic factor deficiency; N18.3 Chronic kidney disease, stage 3 (moderate); K21.9 Gastro-esophageal reflux disease without esophagitis; M81.0 Age-related osteoporosis without current pathological fracture; R11.0 Nausea; T39.95XA Adverse effect of unspecified nonopioid analgesic, antipyretic and antirheumatic, initial encounter; Y92.230 Patient room in hospital as the place of occurrence of the external cause

== ENCOUNTER 2021-09-18 09:44 | Inpatient (IN) ==
[2021-09-18] MEDS ORDERED: ONDANSETRON INJ 2 MG/ML 2 ML VIAL IV STA (10:27)
--- NOTE | 2021-09-18 10:33 | Emergency Department Note ---
Impression & Plan Acute bilateral low back pain, COVID-19, Cough ED Provider Note INFORMANT: Patient ED PROVIDER(S): Lv Zee MD CHIEF COMPLAINT: Back pain PLAN: Disposition: Admitted Condition: Good Outpatient prescription management: none Referral: None MEDICAL DECISION MAKING: Patient presented because of low back pain and cough. She has known COVID. She was placed in isolation. A chest x-ray was performed and shows a subtle left lower lobe infiltrate consistent with a viral etiology. The patient had an unremarkable CBC and chemistry panel. CT imaging of her back was performed and she has appears to be compression fractures of L1 and L3. This would explain her pain. She was treated with morphine. On reassessment she was feeling some improvement of her pain. She is not doing well at home. [facility] Patient was evaluated in the ER for further management. Triage Nursing notes reviewed and agree them. Vital Signs: reviewed and remarkable for no significant abnormalities Differential diagnosis: Musculoskeletal, disc herniation, fracture, metastatic disease, cord com pression, discitis, sciatica, cauda equina, infection, aortic disease, renal colic, gastrointestinal, complication of COVID-19 as well as other pathologies. Diagnostics interpreted by me: ECG: none Cardiac Monitoring: Cardiac monitoring ordered by me: The patient was placed on continuous cardiac monitoring and observed. It revealed a sinus bradycardia 52 beats per minute without ectopy or evidence of dysrhythmia. Imaging studies: CT scans as noted above. I refer you to the EMR for further details. HPI: The patient is a 81year old female who presents to the Emergency Room with complaints of low back pain. This started last month and is worsening. Initially was on the left side now it is bilateral. She feels like it is worse since she is been coughing. Patient was diagnosed with COVID-19 7 days ago. The patient also notes the following associated symptoms, fatigue. Patient states that she is unable to get around at home especially over the last week.. The patient has found no relieving factors. Current pain is rated as 11/10. Pt denies LOC, headache, fevers, chills, diaphoresis, visual changes, neck pain, chest pain, breathing difficulties, nausea, vomiting, abdominal pain, saddle anesthesia, bowel or bladder incontinence, melena, hematochezia, urinary symptoms, numbness, weakness, lymphadenopathy, rash, or other complaints. ROS: See above HPI for pertinent positives & negatives. A total of 10 systems reviewed and were otherwise negative. PAST MEDICAL HISTORY:See Below , CKD, diverticulosis PAST SURGICAL HISTORY:See Below, knee replacement FAMILY HISTORY:See Below SOCIAL HISTORY:See Below, HOME MEDICATIONS:See Below ALLERGIES:See Below VITALS:See Below PHYSICAL EXAMINATION: GENERAL: Awake, alert, comfortable -appearing, in no distress HENT: Normocephalic, atraumatic. Oropharynx unremarkable. EYES: Normal conjunctiva. Sclera non-icteric. NECK: Inspection normal. Non-tender. Supple. No nuchal rigidity. FROM. No masses. RESPIRATORY: Clear to auscultation. No wheezes. No rales. Normal respiratory effort. CARDIAC: Normal rate. Normal rhythm. No murmurs. No rubs. Extremities warm and well perfused. Pulses equal. No JVD. GI: Soft, non-distended. No tenderness to palpation. No rebound or guarding. No masses. RECTAL: Deferred. MUSCULOSKELETAL: Atraumatic. Chest examination reveals no tenderness. The back is symmetrical on inspection without obvious abnormality. There is bilateral lower lumbarparaspinal tenderness to palpation. There is no CVA tenderness to palpation. No joint edema. LOWER EXTREMITIES: Calves are equal size bilaterally and non-tender. No edema. No discoloration. NEURO: Normal sensorium. No sensory or motor deficits noted. No Saddle anesthesia. SKIN: No rash or jaundice noted. Lv Zee MD Past Med/Surg History Medical History CKD (chronic kidney disease), stage III Diverticulosis of colon Dyslipidemia GERD (gastroesophageal reflux disease) History of colon cancer Hypertension Hypothyroidism Osteoporosis Surgical History (Updated 09/18/21 @ 14:56 by BRITNI Ruth) Status post cholecystectomy Status post left knee replacement Status post right oophorectomy Family History Father Cancer Stroke Social History (Updated 09/18/21 @ 15:04 by BRITNI Ruth) Smoking Status: Never smoker Hx Alcohol Use: No Preferred Language: Amharic Feels Safe at Home: Yes Allergies Allergies Allergy/AdvReac Type Severity Reaction Status Date / Time mold Allergy Intermediate Cough Verified 09/18/21 13:39 propoxyphene Allergy Intermediate RASH,LIGHTHEADED,PUFFY Verified 09/18/21 13:39 AND RED FACE alendronate sodium Allergy Unknown COULDN'T Verified 09/18/21 13:39 SWALLOW latex Allergy Unknown PER Verified 10/13/16 05:37 NURSING ASSESSMENT (PLEASE CLARIFY WITH PATIENT) pollen extracts AdvReac Intermediate POST NASAL Verified 09/18/21 13:39 DRIP adhesive AdvReac Mild RASH WITH Verified 10/13/16 11:24 OLDER TAPE-PAPER TAPE OK Home Meds Home Medications Medication Instructions Recorded Confirmed baclofen 10 mg tablet 10 mg PO BID PRN Pain 09/18/21 09/18/21 benzonatate 100 mg capsule 100 mg PO TID PRN Cough 09/18/21 09/18/21 biotin 5,000 mcg disintegrating 5,000 mcg PO DAILY 09/18/21 09/18/21 tablet cholecalciferol (vitamin D3) 25 25 mcg PO DAILY 09/18/21 09/18/21 mcg (1,000 unit) capsule (Vitamin D3) cyanocobalamin (vitamin B-12) 1,000 mcg IM MONTHLY 09/18/21 09/18/21 1,000 mcg/mL injection solution dorzolamide 22.3 mg-timolol 6.8 1 drp OPB BID 09/18/21 09/18/21 mg/mL eye drops krill oil 500 mg capsule 500 mg PO DAILY 09/18/21 09/18/21 levothyroxine 88 mcg tablet 88 mcg PO DAILYBB 09/18/21 09/18/21 lisinopril 2.5 mg tablet 2.5 mg PO DAILY 09/18/21 09/18/21 polyethylene glycol 3350 17 17 g PO DAILY PRN Constipation 09/18/21 09/18/21 gram/dose oral powder (Miralax) potassium chloride 10 mEq 30 meq PO DAILY 09/18/21 09/18/21 tablet,extended release triamterene 75 1 tab PO DAILY 09/18/21 09/18/21 mg-hydrochlorothiazide 50 mg tablet Results & Data (ED) Vital Signs Vital Signs - 24 hr 09/18/21 10:06 09/18/21 10:27 09/18/21 10:19 Temperature 36.8 C Temperature Source Oral Pulse Rate 62 59 L Pulse Rate from SpO2 Sensor Pulse Rhythm Irregular Pulse Strength Normal Respiratory Rate 20 17 Respiratory Effort / Characteristics Non-Labored Spontaneous Respiratory Depth Normal Respiratory Pattern Regular Blood Pressure 163/71 H Blood Pressure Mean 101 Blood Pressure Position Sitting Pulse Oximetry 97 Oxygen Delivery Method Room Air Room Air Sepsis Recent Fever Within 48 Hours No Sepsis New/Unexplained Change in Mental Status No Sepsis Action Taken by Nursing No Action Required 09/18/21 10:30 09/18/21 10:30 09/18/21 11:04 Temperature Temperature Source Pulse Rate 55 L 54 L Pulse Rate from SpO2 Sensor 54 L Pulse Rhythm Pulse Strength Respiratory Rate 13 18 Respiratory Effort / Characteristics Respiratory Depth Respiratory Pattern Blood Pressure 132/86 Blood Pressure Mean 101 Blood Pressure Position Pulse Oximetry 99 Oxygen Delivery Method Sepsis Recent Fever Within 48 Hours Sepsis New/Unexplained Change in Mental Status Sepsis Action Taken by Nursing 09/18/21 11:44 09/18/21 11:54 09/18/21 11:54 Temperature Temperature Source Pulse Rate 55 L 51 L Pulse Rate from SpO2 Sensor Pulse Rhythm Pulse Strength Respiratory Rate 17 13 Respiratory Effort / Characteristics Respiratory Depth Respiratory Pattern Blood Pressure 125/73 Blood Pressure Mean 90 Blood Pressure Position Pulse Oximetry Oxygen Delivery Method Sepsis Recent Fever Within 48 Hours Sepsis New/Unexplained Change in Mental Status Sepsis Action Taken by Nursing 09/18/21 12:00 09/18/21 12:30 09/18/21 12:32 Temperature Temperature Source Pulse Rate 53 L 49 L Pulse Rate from SpO2 Sensor Pulse Rhythm Pulse Strength Respiratory Rate 16 13 Respiratory Effort / Characteristics Respiratory Depth Respiratory Pattern Blood Pressure 143/43 H Blood Pressure Mean 76 Blood Pressure Position Pulse Oximetry Oxygen Delivery Method Sepsis Recent Fever Within 48 Hours Sepsis New/Unexplained Change in Mental Status Sepsis Action Taken by Nursing 09/18/21 12:32 09/18/21 13:00 09/18/21 13:00 Temperature Temperature Source Pulse Rate 48 L 56 L Pulse Rate from SpO2 Sensor Pulse Rhythm Pulse Strength Respiratory Rate 21 9 L Respiratory Effort / Characteristics Respiratory Depth Respiratory Pattern Blood Pressure 90/51 L Blood Pressure Mean 64 Blood Pressure Position Pulse Oximetry Oxygen Delivery Method Sepsis Recent Fever Within 48 Hours Sepsis New/Unexplained Change in Mental Status Sepsis Action Taken by Nursing 09/18/21 13:30 09/18/21 13:30 09/18/21 13:33 Temperature Temperature Source Pulse Rate 49 L Pulse Rate from SpO2 Sensor Pulse Rhythm Pulse Strength Respiratory Rate 10 L Respiratory Effort / Characteristics Respiratory Depth Respiratory Pattern Blood Pressure 75/38 L 120/53 L Blood Pressure Mean 50 75 Blood Pressure Position Pulse Oximetry Oxygen Delivery Method Sepsis Recent Fever Within 48 Hours Sepsis New/Unexplained Change in Mental Status Sepsis Action Taken by Nursing 09/18/21 13:33 09/18/21 14:00 09/18/21 14:01 Temperature Temperature Source Pulse Rate 47 L 54 L 51 L Pulse Rate from SpO2 Sensor 47 L 55 L 52 L Pulse Rhythm Pulse Strength Respiratory Rate 7 L 10 L 9 L Respiratory Effort / Characteristics Respiratory Depth Respiratory Pattern Blood Pressure Blood Pressure Mean Blood Pressure Position Pulse Oximetry 95 99 99 Oxygen Delivery Method Sepsis Recent Fever Within 48 Hours Sepsis New/Unexplained Change in Mental Status Sepsis Action Taken by Nursing 09/18/21 14:01 09/18/21 14:30 09/18/21 14:30 Temperature Temperature Source Pulse Rate 56 L Pulse Rate from SpO2 Sensor Pulse Rhythm Pulse Strength Respiratory Rate 12 Respiratory Effort / Characteristics Respiratory Depth Respiratory Pattern Blood Pressure 149/56 H 150/77 H Blood Pressure Mean 87 101 Blood Pressure Position Pulse Oximetry Oxygen Delivery Method Sepsis Recent Fever Within 48 Hours Sepsis New/Unexplained Change in Mental Status Sepsis Action Taken by Nursing Laboratory Data Result diagrams: 09/18/21 12:05 09/18/21 12:05 Lab Results 09/18/21 09/18/21 09/18/21 Range/Units 11:25 11:30 12:05 WBC 5.93 (4.8-10.8) K/ul RBC 4.69 (3.93-5.22) M/uL Hgb 14.2 (12.0-16.0) g/dl Hct 41.2 (34.1-44.9) % MCV 87.8 (80.0-100.0) fL MCH 30.3 (25.0-34.0) pg MCHC 34.5 (32.0-36.0) g/dL RDW Std Deviation 42.7 (36.4-46.3) fL RDW Coeff of Hunter 13.2 (11.5-14.5) % Plt Count 219 (130-400) K/uL MPV 9.8 (9.4-12.3) fL Immature Gran % (Auto) 0.5 % Neut % (Auto) 77.2 % Lymph % (Auto) 11.5 % [place] % (Auto) 7.1 % Eos % (Auto) 3.0 % Baso % (Auto) 0.7 % Neut # (Auto) 4.58 (1.4-6.5) K/uL Lymph # (Auto) 0.68 L (1.2-3.4) K/uL [place] # (Auto) 0.42 (0.24-0.82) K/uL Eos # (Auto) 0.18 (0-0.50) K/uL Baso # (Auto) 0.04 (0-0.2) K/uL Immature Gran # (Auto) 0.03 H (0.00-0.02) K/uL ESR (0-30) mm/hr Sodium (136-145) mmol/L Potassium (3.5-5.1) mmol/L Chloride (98-107) mmol/L Carbon Dioxide (21-32) mmol/L Anion Gap (3-11) BUN (6-23) mg/dl Creatinine (0.6-1.2) mg/dl Est Cr Clr Drug Dosing ml/min Est GFR ( Amer) ml/min Est GFR (Non-Af Amer) ml/min BUN/Creatinine Ratio (10-20) Glucose (70-99(Fasting)) mg/dl Calcium (8.5-10.1) mg/dl Total Bilirubin (0.2-1.0) mg/dl AST (13-39) U/L ALT (7-52) U/L Alkaline Phosphatase (34-104) U/L C-Reactive Protein (0-0.5) mg/dl Total Protein (6.0-8.3) gm/dl Albumin (3.4-5.0) gm/dl Globulin (2.5-4.0) gm/dl Albumin/Globulin Ratio (0.9-2) Lipase (11-82) U/L Urine Color Yellow Urine Appearance Clear (Clear) Urine pH 5.0 (4.5-7.5) Ur Specific [place] 1.011 (1.000-1.030) Urine Protein Negative (Negative) Urine Glucose (UA) Negative (Negative) Urine Ketones Negative (Negative) Urine Blood Negative (Negative) Urine Nitrite Negative (Negative) Urine Bilirubin Negative (Negative) Urine Urobilinogen Negative (Negative) Ur Leukocyte Esterase 2+ H (Negative) Urine WBC (Auto) 1-5 (0-5) /hpf Urine RBC (Auto) 5-10 H (0-4) /hpf U Hyaline Cast (Auto) 0 (0-5) /lpf U Epithel Cells (Auto) >30 H (0-5) /lpf Urine Bacteria (Auto) Negative (Negative) SARS-CoV-2, RNA, NAAT POSITIVE A* (NEGATIVE) 09/18/21 09/18/21 Range/Units 12:05 12:05 WBC (4.8-10.8) K/ul RBC (3.93-5.22) M/uL Hgb (12.0-16.0) g/dl Hct (34.1-44.9) % MCV (80.0-100.0) fL MCH (25.0-34.0) pg MCHC (32.0-36.0) g/dL RDW Std Deviation (36.4-46.3) fL RDW Coeff of Hunter (11.5-14.5) % Plt Count (130-400) K/uL MPV (9.4-12.3) fL Immature Gran % (Auto) % Neut % (Auto) % Lymph % (Auto) % [place] % (Auto) % Eos % (Auto) % Baso % (Auto) % Neut # (Auto) (1.4-6.5) K/uL Lymph # (Auto) (1.2-3.4) K/uL [place] # (Auto) (0.24-0.82) K/uL Eos # (Auto) (0-0.50) K/uL Baso # (Auto) (0-0.2) K/uL Immature Gran # (Auto) (0.00-0.02) K/uL ESR 23 (0-30) mm/hr Sodium 134 L (136-145) mmol/L Potassium 4.3 (3.5-5.1) mmol/L Chloride 101 (98-107) mmol/L Carbon Dioxide 24 (21-32) mmol/L Anion Gap 9 (3-11) BUN 31 H (6-23) mg/dl Creatinine 1.39 H (0.6-1.2) mg/dl Est Cr Clr Drug Dosing 29.7 ml/min Est GFR ( Amer) 40.5 ml/min Est GFR (Non-Af Amer) 35.0 ml/min BUN/Creatinine Ratio 22.3 H (10-20) Glucose 94 (70-99(Fasting)) mg/dl Calcium 10.7 H (8.5-10.1) mg/dl Total Bilirubin 1.1 H (0.2-1.0) mg/dl AST 31 (13-39) U/L ALT 28 (7-52) U/L Alkaline Phosphatase 117 H (34-104) U/L C-Reactive Protein 0.82 H (0-0.5) mg/dl Total Protein 7.3 (6.0-8.3) gm/dl Albumin 4.3 (3.4-5.0) gm/dl Globulin 3.0 (2.5-4.0) gm/dl Albumin/Globulin Ratio 1.4 (0.9-2) Lipase 19 (11-82) U/L Urine Color Urine Appearance (Clear) Urine pH (4.5-7.5) Ur Specific [place] (1.000-1.030) Urine Protein (Negative) Urine Glucose (UA) (Negative) Urine Ketones (Negative) Urine Blood (Negative) Urine Nitrite (Negative) Urine Bilirubin (Negative) Urine Urobilinogen (Negative) Ur Leukocyte Esterase (Negative) Urine WBC (Auto) (0-5) /hpf Urine RBC (Auto) (0-4) /hpf U Hyaline Cast (Auto) (0-5) /lpf U Epithel Cells (Auto) (0-5) /lpf Urine Bacteria (Auto) (Negative) SARS-CoV-2, RNA, NAAT (NEGATIVE) Administered Medications Acetaminophen (Acetaminophen 500 Mg Tab) 1,000 mg PO Q8H ALESSANDRO Stop: 10/18/21 14:59 Last Admin: 09/18/21 15:30 Dose: Not Given Documented By: OAM Discontinued Medications Morphine Sulfate (Morphine Sulfate 4 Mg/Ml 1 Ml Carp\Vial) 4 mg IV Q1H PRN PRN Reason: Pain Stop: 10/02/21 11:49 Last Admin: 09/18/21 12:54 Dose: 4 mg Documented By: ANTOINE Ondansetron HCl (Ondansetron Inj 2 Mg/Ml 2 Ml Vial) 4 mg IV NOW STA Stop: 09/18/21 10:28 Last Admin: 09/18/21 15:27 Dose: Not Given Documented By: OAM Imaging Data Radiologist's Impression: Chest X-Ray 09/18/21 10:27 XR chest 1V portable HISTORY: cough, covid COMPARISON: Chest 09/25/2016. FINDINGS: No pneumothorax. No pleural effusions. The heart is borderline enlarged. Mild emphysema. Mild diffuse interstitial thickening, unchanged. This is likely chronic. No evidence for pulmonary edema. Possible small patchy left base airspace opacity. IMPRESSION: Possible small patchy left basilar airspace opacity. This could represent a developing viral pneumonia. ACT 112: Negative or not required by law. Electronically signed by: Walker Vizcaino M.D. 09/18/2021 11:[address] 09/18/21 10:[address] DOSE: 510.35 mGycm HISTORY: severe Back Pain TECHNIQUE: Multiaxial CT images of the lumbar spine were performed and reformatted in the sagittal and coronal plane without the use of contrast. A do se lowering technique was utilized adhering to the principles of ALARA. COMPARISON: None. FINDINGS: There are mild superior endplate compression fractures at L1 and L3 which demonstrate up to 15% loss of height anteriorly. These are likely subacut e. No significant retropulsion. The remaining vertebral bodies are maintained. The L5-S1 vertebral bodies are fused. There is mild disc space narrowing at L4- L5. There is mild to moderate central canal narrowing at L3-L4 and L4-5. [id number]-lw-mwoeowyc facet degenerative changes within the mid to lower lumbar spine. IMPRESSION: 1. There are subacute mild superior endplate compression fractures at L1 and L3. No associated retropulsion. 2. Degenerative changes as described above. ACT 112: Negative or not required by law. Electronically signed by: Walker Vizcaino M.D. 09/18/2021 11:31 AM Discharge Plan Visit Data Chief Complaint: Back Injury/Pain Stated Complaint: BACK PAIN ED Provider: Lv Zee Discharge Problem: Acute bilateral low back pain, COVID-19, Cough
--- NOTE | 2021-09-18 11:33 | CT Scan Report ---
LUMBAR SPINE CT CT DOSE: 510.35 mGycm HISTORY: severe Back Pain TECHNIQUE: Multiaxial CT images of the lumbar spine were performed and reformatted in the sagittal an d coronal plane without the use of contrast. A dose lowering technique was utilized adhering to the principles of ALARA. COMPARISON: None. FINDINGS: There are mild superior endplate compression fractures at L1 and L3 which demonstrate up to 15% loss of height anteriorly. These are likely subacute. No significant retropulsion. The remaining vertebral bodies are maintained. The L5-S1 vertebral bodies are fused. There is mild disc space narr owing at L4-L5. There is mild to moderate central canal narrowing at L3-L4 and L4-5. [id number] facet degenerative changes within the mid to lower lumbar spine. IMPRESSION: 1. There are subacute mild superior endplate compression fractures at L1 and L3. No associated retrop ulsion. 2. Degenerative changes as described above. ACT 112: Negative or not required by law. Electronically signed by: Walker Vizcaino M.D. 09/18/2021 11:31 AM
[2021-09-18] MEDS ORDERED: MoRPHine SULFATE 4 MG/ML 1 ML CARP\\VIAL IV PRN (11:50)
--- NOTE | 2021-09-18 11:57 | XRay Report ---
XR chest 1V portable HISTORY: cough, covid COMPARISON: Chest 09/25/2016. FINDINGS: No pneumothorax. No pleural effusions. The heart is borderline enlarged. Mild emphysema. Mi ld diffuse interstitial thickening, unchanged. This is likely chronic. No evidence for pulmonary julisa a. Possible small patchy left base airspace opacity. IMPRESSION: Possible small patchy left basilar airspace opacity. This could represent a developing viral pneumoni a. ACT 112: Negative or not required by law. Electronically signed by: Walker Vizcaino M.D. 09/18/2021 11:56 AM
[2021-09-18 12:01] LABS: Appearance Urine Clear (Clear); Bacteria Urine Automated Negative (Negative); Bilirubin Urine Negative (Negative); Blood Urine Negative (Negative); Color Urine Yellow; Epithelial Cell Urine Auto >30 /lpf (0-5); Glucose Urine UA Negative (Negative); Ketones Urine Negative (Negative); Leukocyte Esterase Urine 2+ (Negative); Nitrite Urine Negative (Negative); Protein Urine Negative (Negative); Specific Gravity Urine 1.011 (1.000-1.030); Urobilinogen Urine Negative (Negative)
[2021-09-18 12:14] LABS: Basophils # (auto) 0.04 K/uL (0-0.2); Basophils % (auto) 0.7 %; Eosinophils # (auto) 0.18 K/uL (0-0.50); Hematocrit (blood only) 41.2 % (34.1-44.9); Hemoglobin 14.2 g/dl (12.0-16.0); Immature Granulocytes # (auto) 0.03 K/uL (0.00-0.02); Immature Granulocytes % (auto) 0.5 %; Lymphocytes # (auto) 0.68 K/uL (1.2-3.4); Lymphocytes % (auto) 11.5 %; Mean Corpuscular Hemoglobin 30.3 pg (25.0-34.0); Mean Corpuscular Hgb Conc 34.5 g/dL (32.0-36.0); Mean Corpuscular Volume 87.8 fL (80.0-100.0); Mean Platelet Volume 9.8 fL (9.4-12.3); Monocytes # (auto) 0.42 K/uL (0.24-0.82); Monocytes % (auto) 7.1 %; Neutrophils # (auto) 4.58 K/uL (1.4-6.5); Neutrophils % (auto) 77.2 %; Platelet Count 219 K/uL (130-400); RDW Coefficient of Variation 13.2 % (11.5-14.5); RDW Standard Deviation 42.7 fL (36.4-46.3); Red Blood Count 4.69 M/uL (3.93-5.22); White Blood Count 5.93 K/ul (4.8-10.8)
[2021-09-18 12:22] LABS: Cast Urine Automated 0 /lpf (0-5)
[2021-09-18 12:55] LABS: Albumin Globulin Ratio 1.4 (0.9-2); Albumin Level 4.3 gm/dl (3.4-5.0); BUN Creatinine Ratio 22.3 (10-20); Bilirubin,Total 1.1 mg/dl (0.2-1.0); C Reactive Protein 0.82 mg/dl (0-0.5); Calcium 10.7 mg/dl (8.5-10.1); Creatinine Clr Calc Pharmacy 29.7 ml/min; Est GFR (African American) 40.5 ml/min; Potassium 4.3 mmol/L (3.5-5.1); Total Protein 7.3 gm/dl (6.0-8.3)
--- NOTE | 2021-09-18 14:54 | Communication Note ---
Date of Service: September 18, 2021 Patient was seen and examined independently at bedside. Chart reviewed. Case discussed with Hortencia RYDER and agree with the documentation above. In ivy lopez, this is a 81 year old female who presented to the ED with worsening back pain with radiculopathy. She has been having cough for the past 5 weeks and tested positive for covid on 09/10. She had severe cough last week and felt back pain which has since persisted. In the ED, afebrile, hemodynamically stable, but intermittently uncomfortable due to back pain and spasms. She was found to have subacute mild compression fractures of L1 and L3. She is asking for some pain medication. States she has history of osteoporosis and was on prolia q6 months but was discontinued by her doctor 8 months back but she could not keep up the follow up DEXA scan. Admit for pain management- lidoderm patch, q6hr tylenol, heat pad, oxy prn, iv morphine prn for breakthrough pain. Consult Dr Hernandez. PT/OT eval. Check vitamin D levels. As for her COVID, still tested positive, CXR with small left patchy opacity PNA but afebrile but paucity of respiratory symptoms, no shortness of breath and saturating well in room air. As her symptoms are mild and has been present for weeks, it does not necessitate covid specific treatment. Antitussives prn for cough. She will need follow up with her PCP for management of her osteoporosis. Rest as per the note above.
--- NOTE | 2021-09-18 15:12 | History & Physical Report ---
Date of Service September 18, 2021 Assessment & Plan (1) Compression fracture: (2) Ambulatory dysfunction: Plan: [facility] Patient presenting from home with reports of intractable back pain. No history of fall. Patient reports recent harsh coughing and sneezing due to COVID-19. In the ED, CT lumbar spine showing mild L1 and L3 compression fractures. Pain control with scheduled Tylenol, Lidoderm patch, as needed oxycodone and morphine for breakthrough pain [place] for now due to increased pain with movement Check vitamin D level PT/OT Spine Ortho consult (3) COVID-19: Plan: Saturating well on room air CXR shows possible small patchy left basilar airspace opacity No indication for COVID-19 directed therapy Incentive spirometer encouraged (4) Hypertension: Plan: BP mildly elevated, likely due to pain Continue home lisinopril Hold HCTZ as patient has hypercalcemia. (5) CKD (chronic kidney disease), stage III: Plan: Baseline creatinine ~ 1.4 Creatinine 1.39 today Monitor renal functions (6) Hypothyroidism: Plan: Continue levothyroxine (7) DVT prophylaxis: Plan: SQ heparin Admission and Anticipated Discharge Date Admission Date: September 18, 2021 History of Present Illness Chief Complaint: Back pain Primary Care Provider: Rosie Aldana MD 81-year-old female with PMH hypothyroidism, pulmonary hypertension, HTN, tricuspid valve regurgitation, CKD stage III, GERD, osteoporosis, and other problems listed below who presents to the ED for evaluation of back pain. Pat ient reports that she has had a cough since August 11. Reports she took a COVID test at that time and was negative. Last week, she was retested by PCPs office and tested positive for COVID-19. Patient reports that about 1 week ago she had a very harsh cough and sneeze and subsequently developed severe low back pain. Patient reports pain has been persistent and progressively getting worse. She d enies any bowel or bladder dysfunction. No radiation of the pain into either leg. Denies lower extremity weakness. Patient reports pain with minimal movement. She reports cough has been nonproductive. She reports some mild shortness of breath. No fevers or chills. Denies chest pain or palpitations. No lightheadedness, dizziness, diaphoresis, syncopal events. Reports her appetite has remained good, denies abdominal pain, nausea, vomiting, diarrhea. No urinary symptoms. In the ED, patient continues to test positive for COVID- 19. She is saturating well on room air. CXR shows Possible small patchy left basilar airspace opacity. CT lumbar spine shows subacute mild superior endplate compression fractures at L1 and L3. Patient was given IV morphine, IV Zofran, and a Lidoderm patch. Allergies Allergy/AdvReac Type Severity Reaction Status Date / Time mold Allergy Intermediate Cough Verified 09/18/21 13:39 propoxyphene Allergy Intermediate RASH,LIGHTHEADED,PUFFY Verified 09/18/21 13:39 AND RED FACE alendronate sodium Allergy Unknown COULDN'T Verified 09/18/21 13:39 SWALLOW latex Allergy Unknown PER Verified 10/13/16 05:37 NURSING ASSESSMENT (PLEASE CLARIFY WITH PATIENT) pollen extracts AdvReac Intermediate POST NASAL Verified 09/18/21 13:39 DRIP adhesive AdvReac Mild RASH WITH Verified 10/13/16 11:24 OLDER TAPE-PAPER TAPE OK Home Medications Medication Instructions Recorded Confirmed Type baclofen 10 mg tablet 10 mg PO BID PRN Pain 09/18/21 09/18/21 History benzonatate 100 mg capsule 100 mg PO TID PRN Cough 09/18/21 09/18/21 History biotin 5,000 mcg disintegrating 5,000 mcg PO DAILY 09/18/21 09/18/21 History tablet cholecalciferol (vitamin D3) 25 25 mcg PO DAILY 09/18/21 09/18/21 History mcg (1,000 unit) capsule (Vitamin D3) cyanocobalamin (vitamin B-12) 1,000 mcg IM MONTHLY 09/18/21 09/18/21 History 1,000 mcg/mL injection solution dorzolamide 22.3 mg-timolol 6.8 1 drp OPB BID 09/18/21 09/18/21 History mg/mL eye drops krill oil 500 mg capsule 500 mg PO DAILY 09/18/21 09/18/21 History levothyroxine 88 mcg tablet 88 mcg PO DAILYBB 09/18/21 09/18/21 History lisinopril 2.5 mg tablet 2.5 mg PO DAILY 09/18/21 09/18/21 History polyethylene glycol 3350 17 17 g PO DAILY PRN Constipation 09/18/21 09/18/21 History gram/dose oral powder (Miralax) potassium chloride 10 mEq 30 meq PO DAILY 09/18/21 09/18/21 History tablet,extended release triamterene 75 1 tab PO DAILY 09/18/21 09/18/21 History mg-hydrochlorothiazide 50 mg tablet Past Med/Surg History Medical History CKD (chronic kidney disease), stage III Diverticulosis of colon Dyslipidemia GERD (gastroesophageal reflux disease) History of colon cancer Hypertension Hypothyroidism Osteoporosis Surgical History (Updated 09/18/21 @ 14:56 by BRITNI Ruth) Status post cholecystectomy Status post left knee replacement Status post right oophorectomy Family History Father Cancer Stroke Social History (Updated 09/18/21 @ 15:04 by BRITNI Ruth) Smoking Status: Never smoker Hx Alcohol Use: No Preferred Language: Cambodian Feels Safe at Home: Yes Review of Systems Review of Systems: ROS per HPI, all other systems reviewed and negative Physical Exam Constitutional: WD/WN, vitals as above Eyes: PERRL, conjunctivae normal, anicteric sclerae ENMT: external ear and nose normal, oropharynx normal Respiratory: normal respiratory effort; no respiratory distress Auscultation: + diminished lung sounds (Bilateral bases) Cardiovascular: Rate/Rhythm: regular rate and regular rhythm Vessels: normal peripheral pulses Extremities: no edema Gastrointestinal (Abdomen): normal bowel sounds, soft, nontender, no hepatosplenomegaly Musculoskeletal: no cyanosis or clubbing, extremities motor strength 5/5 Spine: straight leg raise negative bilaterally Skin: no rashes, warm and dry Neurologic: PERRL, EOMI, accommodation nl, no face palsy, no dysarthria Psychiatric: A+Ox3, euthymic affect Results & Data Results & Data ([facility]) Vital Signs (Past 12 Hours) Vital Signs Temp Pulse Resp BP Pulse Ox O2 Del Method 09/18/21 11:44 55 L 09/18/21 11:04 54 L 18 99 09/18/21 10:30 55 L 13 09/18/21 10:30 132/86 09/18/21 10:19 59 L 17 09/18/21 10:27 Room Air 09/18/21 10:06 36.8 C 62 20 163/71 H 97 Room Air Laboratory Results Short CBC 09/18/21 Range/Units 12:05 WBC 5.93 (4.8-10.8) K/ul Hgb 14.2 (12.0-16.0) g/dl Hct 41.2 (34.1-44.9) % Plt Count 219 (130-400) K/uL BMP 09/18/21 12:05 Sodium 134 L Potassium 4.3 Chloride 101 Carbon Dioxide 24 BUN 31 H Creatinine 1.39 H Glucose 94 Calcium 10.7 H Liver Function 09/18/21 Range/Units 12:05 Total Bilirubin 1.1 H (0.2-1.0) mg/dl AST 31 (13-39) U/L ALT 28 (7-52) U/L Alkaline Phosphatase 117 H (34-104) U/L Albumin 4.3 (3.4-5.0) gm/dl Urine 09/18/21 Range/Units 11:25 Urine Color Yellow Urine Appearance Clear (Clear) Urine pH 5.0 (4.5-7.5) Ur Specific [place] 1.011 (1.000-1.030) Urine Protein Negative (Negative) Urine Glucose (UA) Negative (Negative) Diagnostic Findings Chest X-Ray 09/18/21 10:27 XR chest 1V portable HISTORY: cough, covid COMPARISON: Chest 09/25/2016. FINDINGS: No pneumothorax. No pleural effusions. The heart is borderline enlarged. Mild emphysema. Mild diffuse interstitial thickening, unchanged. This is likely chronic. No evidence for pulmonary edema. Possible small patchy left base airspace opacity. IMPRESSION: Possible small patchy left basilar airspace opacity. This could represent a developing viral pneumonia. ACT 112: Negative or not required by law. Electronically signed by: Walker Vizcaino M.D. 09/18/2021 11:[address] 09/18/21 10:[address] DOSE: 510.35 mGycm HISTORY: severe Back Pain TECHNIQUE: Multiaxial CT images of the lumbar spine were performed and reformatted in the sagittal and coronal plane without the use of contrast. A dose lowering technique was utilized adhering to the principles of ALARA. COMPARISON: None. FINDINGS: There are mild superior endplate compression fractures at L1 and L3 which demonstrate up to 15% loss of height anteriorly. These are likely subacute. No significant retropulsion. The remaining vertebral bodies are maintained. The L5-S1 vertebral bodies are fused. There is mild disc space narrowing at L4-L5. There is mild to moderate central canal narrowing at L3-L4 and L4-5. Bdif-if-kkyphpyd facet degenerative changes within the mid to lower lumbar spine. IMPRESSION: 1. There are subacute mild superior endplate compression fractures at L1 and L3. No associated retropulsion. 2. Degenerative changes as described above. ACT 112: Negative or not required by law. Electronically signed by: Walker Vizcaino M.D. 09/18/2021 11:31 AM Code Status & VTE Plan VTE Prophylaxis Plan VTE Prophylaxis will be ordered: Yes Supervising Physician Co-Signing Physician Notes Patient was seen and examined independently at bedside. Chart reviewed. Case discussed with Hortencia RYDER and agree with the documentation above. In summary, this is a 81 year old female who presented to the ED with worsening back pain with radiculopathy. She has been having cough for the past 5 weeks and tested positive for covid on 09/10. She had severe cough last week and felt back pain which has since persisted. In the ED, afebrile, hemodynamically stable, but intermittently uncomfortable due to back pain and spasms. She was found to have subacute mild compression fractures of L1 and L3. She is asking for some pain medication. States she has history of osteoporosis and was on prolia q6 months but was discontinued by her doctor 8 months back but she could not keep up the follow up DEXA scan. Admit for pain management- lidoderm patch, q6hr tylenol, heat pad, oxy prn, iv morphine prn for breakthrough pain. Consult Dr Hernandez. PT/OT arturo. Check vitamin D levels. As for her COVID, still tested positive, CXR with small left patchy opacity PNA but afebrile but paucity of respiratory symptoms, no shortness of breath and saturating well in room air. As her symptoms are mild and has been present for weeks, it does not necessitate covid specific treatment. Antitussives prn for cough. She has hypercalcemia likely from her thiazide diuretics- will give gentle fluids, hold HCTZ for now and recheck Ca in am. Might need discontinuation of HCTZ if hypercalcemia persists. She will need follow up with her PCP for management of her osteoporosis. Rest as per the note above.
[2021-09-18] MEDS: ACETAMINOPHEN 500 MG TAB PO SCH ×2 (15:30→23:55)
--- NOTE | 2021-09-18 17:40 | Electrocardiogram Report ---
Test Reason : Blood Pressure : / mmHG Vent. Rate : 059 BPM Atrial Rate : 059 BPM P-R Int : 148 ms QRS Dur : 090 ms QT Int : 438 ms P-R-T Axes : 083 058 059 degrees QTc Int : 433 ms Sinus bradycardia with Premature atrial complexes Low voltage QRS Borderline ECG When compared with ECG of 21-NOV-2015 14:06, Premature ventricular complexes are no longer Present Premature atrial complexes are now Present Confirmed by Kentrell Fermin ([id number]) on 09/18/2021 5:40:21 PM Referred By: REFERRED SELF Confirmed By:Kentrell Fermin
[2021-09-18] MEDS: SODIUM CHLORIDE 0.9% 1000ML 1,000 ML IV SCH (18:21)
[2021-09-18] MEDS ORDERED: ONDANSETRON INJ 2 MG/ML 2 ML VIAL IV PRN (19:01)
[2021-09-18] MEDS: MoRPHine SULFATE 4 MG/ML 1 ML CARP\\VIAL IV PRN (19:33)
[2021-09-18] MEDS: HEPARIN SOD 5,000 UNIT/0.5 ML VIAL SQ SCH (21:16)
[2021-09-18] MEDS: DORZOLAMIDE/TIMOLOL 22.3/6.8MG/ML 10 ML BTL OPB SCH (21:16)
[2021-09-19] MEDS: oxyCODONE HCL IR 5 MG TAB (IMMEDIATE RELEASE) PO PRN ×3 (06:31→22:45)
[2021-09-19] MEDS: HEPARIN SOD 5,000 UNIT/0.5 ML VIAL SQ SCH ×3 (06:31→22:45)
[2021-09-19] MEDS: ACETAMINOPHEN 500 MG TAB PO SCH ×3 (06:31→22:45)
[2021-09-19] MEDS: LEVOTHYROXINE SODIUM 88 MCG TABLET PO SCH (06:32)
[2021-09-19] MEDS: SODIUM CHLORIDE 0.9% 1000ML 1,000 ML IV SCH ×2 (06:36→19:39)
[2021-09-19 08:31] LABS: Hematocrit (blood only) 37.9 % (34.1-44.9); Hemoglobin 12.6 g/dl (12.0-16.0); Mean Corpuscular Hemoglobin 29.9 pg (25.0-34.0); Mean Corpuscular Hgb Conc 33.2 g/dL (32.0-36.0); Mean Corpuscular Volume 89.8 fL (80.0-100.0); Mean Platelet Volume 10.2 fL (9.4-12.3); Platelet Count 204 K/uL (130-400); RDW Coefficient of Variation 13.3 % (11.5-14.5); RDW Standard Deviation 43.5 fL (36.4-46.3); Red Blood Count 4.22 M/uL (3.93-5.22); White Blood Count 4.34 K/ul (4.8-10.8)
[2021-09-19] MEDS: LIDOCAINE 5% 1 PATCH TD SCH (08:37)
[2021-09-19] MEDS: DORZOLAMIDE/TIMOLOL 22.3/6.8MG/ML 10 ML BTL OPB SCH ×2 (08:37→19:40)
[2021-09-19] MEDS: lisinopril 2.5 MG TAB PO SCH (08:38)
[2021-09-19 08:54] LABS: BUN Creatinine Ratio 21.6 (10-20); Calcium 9.8 mg/dl (8.5-10.1); Creatinine Clr Calc Pharmacy 29.6 ml/min; Est GFR (African American) 40.5 ml/min; Magnesium 1.9 mg/dl (1.7-2.4); Potassium 4.2 mmol/L (3.5-5.1)
[2021-09-19] MEDS ORDERED: CHOLECALCIFEROL 1,000 UNITS 25 MCG TAB PO SCH (09:00)
[2021-09-19] MEDS ORDERED: LIDOCAINE 5% 1 PATCH TD SCH (09:00)
[2021-09-19] MEDS: POLYETHYLENE (MIRALAX) 17 GM PACK PO SCH (10:02)
--- NOTE | 2021-09-19 10:32 | Orthopedic Consultation ---
Date of Consultation September 19, 2021 Assessment & Plan (1) Compression fracture: At this point the patient has minimal L1 and L3 compression fractures. This likely due to acute pain and increased coughing resulting these fractures. Appropriate work-up for osteoporosis is in the works we have ordered an LSO br funmilayo to be worn for comfort when she is up and walking. She should continue with PT and OT for ambulation and continued pain control measures. At this point there is no indication for any type of surgical intervention unless her symptoms persist or not improve with the passage of time. Please contact us with any other questions or concerns. History of Present Illness Attending Physician: Vahid Mckeon MD History of Present Illness Per chart review patient 71-year-old female who presented to the emergency room due to persistent cough and increasing lower back pain that is intolerable. On August 11 she started having persistent cough. She tested negative for COVID initially but last week tested positive for she presented the emergency room is placed on isolation. CT scans reviewed revealed L1 and L3 compression fractures. The patient is continued on isolation was admitted for pain control. The medications are controlling her pain there is no mention of lower extremity numbness tingling or paresthesias. Allergies Allergy/AdvReac Type Severity Reaction Status Date / Time mold Allergy Intermediate Cough Verified 09/18/21 13:39 propoxyphene Allergy Intermediate RASH,LIGHTHEADED,PUFFY Verified 09/18/21 13:39 AND RED FACE alendronate sodium Allergy Unknown COULDN'T Verified 09/18/21 13:39 SWALLOW latex Allergy Unknown PER Verified 10/13/16 05:37 NURSING ASSESSMENT (PLEASE CLARIFY WITH PATIENT) pollen extracts AdvReac Intermediate POST NASAL Verified 09/18/21 13:39 DRIP adhesive AdvReac Mild RASH WITH Verified 10/13/16 11:24 OLDER TAPE-PAPER TAPE OK Home Medications Medication Instructions Recorded Confirmed Type baclofen 10 mg tablet 10 mg PO BID PRN Pain 09/18/21 09/18/21 History benzonatate 100 mg capsule 100 mg PO TID PRN Cough 09/18/21 09/18/21 History biotin 5,000 mcg disintegrating 5,000 mcg PO DAILY 09/18/21 09/18/21 History tablet cholecalciferol (vitamin D3) 25 25 mcg PO DAILY 09/18/21 09/18/21 History mcg (1,000 unit) capsule (Vitamin D3) cyanocobalamin (vitamin B-12) 1,000 mcg IM MONTHLY 09/18/21 09/18/21 History 1,000 mcg/mL injection solution dorzolamide 22.3 mg-timolol 6.8 1 drp OPB BID 09/18/21 09/18/21 History mg/mL eye drops krill oil 500 mg capsule 500 mg PO DAILY 09/18/21 09/18/21 History levothyroxine 88 mcg tablet 88 mcg PO DAILYBB 09/18/21 09/18/21 History lisinopril 2.5 mg tablet 2.5 mg PO DAILY 09/18/21 09/18/21 History polyethylene glycol 3350 17 17 g PO DAILY PRN Constipation 09/18/21 09/18/21 History gram/dose oral powder (Miralax) potassium chloride 10 mEq 30 meq PO DAILY 09/18/21 09/18/21 History tablet,extended release triamterene 75 1 tab PO DAILY 09/18/21 09/18/21 History mg-hydrochlorothiazide 50 mg tablet Patient History Medical History CKD (chronic kidney disease), stage III Diverticulosis of colon Dyslipidemia GERD (gastroesophageal reflux disease) History of colon cancer Hypertension Hypothyroidism Osteoporosis Surgical History (Updated 09/18/21 @ 14:56 by BRITNI Ruth) Status post cholecystectomy Status post left knee replacement Status post right oophorectomy Family History Father Cancer Stroke Social History (Updated 09/18/21 @ 15:04 by BRITNI Ruth) Smoking Status: Never smoker Hx Alcohol Use: No Hx Substance Use: No Preferred Language: Chinese Communication Ability: Effective Shells Inspector Required: No Beliefs That Will Affect Care: None Current Living Situation: Spouse Other Information That Helps Us Care for You: No Feels Safe at Home: Yes Safety Concerns: Feels Safe At This Time Assistive Devices: Denture - Upper and Denture - Lower Results & Data ([facility]) Vital Signs (Past 12 Hours) Vital Signs Temp Pulse Resp BP BP Pulse Ox O2 Del Method 09/19/21 08:44 36.8 C 58 L 18 133/69 92 Room Air 09/18/21 22:46 37 C 56 L 20 133/67 96 Room Air Diagnostic Findings CT scan of the lumbar spine was reviewed there is compression deformities of L1 and L3. There is approximately 4 mm of anterior height loss compared to the intact middle column at L1. The L3 compression deformity has approximately 5 mm anterior height loss compared to the intact middle column. There is central depressions of both vertebral bodies there are no fragments extending towards the canal. No other fractures or high-grade stenosis are noted.
--- NOTE | 2021-09-19 16:36 | Hospitalist Progress Note ---
Date of Service September 19, 2021 Assessment & Plan (1) Compression fracture: Plan 81-year-old female with PMH of hypothyroidism, pulmonary hypertension, HTN, tricuspid valve regurgitation, CKD stage III, GERD, osteoporosis presented to our ED 09/18 with complaint of low back pain. Of note, patient had been having cough since August 11 and reports being tested positive for COVID a week before prior to arrival. Patient states that about 1 week prior to arrival she had a very harsh cough and sneeze and subsequently developed severe low back pain. The pain had been persistent and progressively getting worse. No radicular pain or bowel or bladder dysfunction noted. No fever or vertebral line tenderness. She is being managed for the following: L1 and L3 compression fracture on the background of osteoporosis Ambulatory dysfunction No history of fall or trauma to low back, patient presenting with coughing fits followed by acute onset of low back pain which has been worsening [see above]. Admitting CT lumbar spine with mild L1 and L3 compression fractures. For pain control, Tylenol, Lidoderm patch, as needed oxycodone for breakthrough pain. Orthospine evaluated, LSO brace to be worn for comfort when she is up and walking. Vitamin D level at upper normal limit at 91.9, discontinuing vitamin D supplement, patient will need repeat vitamin D level in few months upon discharge. PT/OT. Patient reports pain under control. COVID-19 infection: Patient is vaccinated and boosted twice. Patient reports having cough for about a month prior to arrival, was tested positive a week ago prior to arrival per patient. Patient tested positive for COVID in the ED 09/18. Patient saturating well on room air at presentation. No indication for COVID-19 directed therapy, incentive spirometer encouraged, continue to monitor. Other chronic medical conditions: HTN, CKD stage III, hypothyroidism --> continue/resume home meds as and when appropriate. HCTZ held due to hypercalcemia, will repeat calcium tomorrow and then likely resume if calcium continues to stay normal. DVT prophylaxis: SQ heparin Full code Text document was generated using voice recognition software. It may contain grammatical or spelling errors. Kindly contact undersigned for clarification of any documentation item in question. Admission and Anticipated Discharge Date Admission Date: September 18, 2021 Subjective Patient seen and examined at bedside as a follow-up of L1 and L3 compression fracture and ambulatory dysfunction and COVID-19 infection. Patient was lying in bed semiupright, on room air, NAD, no new acute events overnight. Patient reports improvement in her low back pain with pain medications. Patient reports eating okay and no diarrhea. Patient denies any radicular pain to her lower extremities. Patient reports improvement in her cough. Patient denies any sore throat/headache/dizziness/chest pain/palpitation/other review of symptoms. Physical Exam Physical Exam: GENERAL: Alert and oriented x3. NAD, on RA. HEENT: No pallor, no icterus. Pupils equal, round and reactive to light. Oral mucosa moist. NECK: No JVD, no neck masses. HEART: S1 and S2 heard. Regular rate and rhythm. No murmur, no gallop. RESPIRATORY SYSTEM: Normal AP diameter. No accessory muscle use. No wheezing, no crackles. ABDOMEN: Soft, bowel sounds present, nontender, no distention. CENTRAL NERVOUS SYSTEM: No facial droop. Speech is clear. Obeys simple commands. Moves extremities. EXTREMITIES: No edema, no erythema seen. No lower back vertebral tenderness Results & Data Results & Data ([facility]) Vital Signs (Past 12 Hours) Vital Signs Temp Pulse Resp BP Pulse Ox O2 Del Method 09/19/21 08:44 36.8 C 58 L 18 133/69 92 Room Air
[2021-09-19] MEDS: MoRPHine SULFATE 4 MG/ML 1 ML CARP\\VIAL IV PRN (19:40)
[2021-09-20] MEDS: MoRPHine SULFATE 4 MG/ML 1 ML CARP\\VIAL IV PRN ×2 (03:07→20:06)
[2021-09-20] MEDS: oxyCODONE HCL IR 5 MG TAB (IMMEDIATE RELEASE) PO PRN ×3 (05:56→23:33)
[2021-09-20] MEDS: HEPARIN SOD 5,000 UNIT/0.5 ML VIAL SQ SCH ×3 (05:56→23:32)
[2021-09-20] MEDS: POLYETHYLENE (MIRALAX) 17 GM PACK PO SCH (05:56)
[2021-09-20] MEDS: ACETAMINOPHEN 500 MG TAB PO SCH ×3 (05:56→23:34)
[2021-09-20] MEDS: LEVOTHYROXINE SODIUM 88 MCG TABLET PO SCH (05:57)
[2021-09-20] MEDS: SODIUM CHLORIDE 0.9% 1000ML 1,000 ML IV SCH (06:04)
[2021-09-20 07:34] LABS: Hematocrit (blood only) 37.5 % (34.1-44.9); Hemoglobin 12.5 g/dl (12.0-16.0); Mean Corpuscular Hgb Conc 33.3 g/dL (32.0-36.0); Mean Corpuscular Volume 90.1 fL (80.0-100.0); Mean Platelet Volume 9.9 fL (9.4-12.3); Platelet Count 181 K/uL (130-400); RDW Coefficient of Variation 13.2 % (11.5-14.5); RDW Standard Deviation 43.3 fL (36.4-46.3); Red Blood Count 4.16 M/uL (3.93-5.22); White Blood Count 5.32 K/ul (4.8-10.8)
[2021-09-20 07:56] LABS: BUN Creatinine Ratio 18.1 (10-20); Calcium 9.2 mg/dl (8.5-10.1); Creatinine Clr Calc Pharmacy 29.8 ml/min; Est GFR (African American) 40.9 ml/min; Est GFR (Non-African American) 35.3 ml/min; Magnesium 1.6 mg/dl (1.7-2.4); Potassium 3.8 mmol/L (3.5-5.1)
[2021-09-20] MEDS: DORZOLAMIDE/TIMOLOL 22.3/6.8MG/ML 10 ML BTL OPB SCH ×2 (08:26→19:42)
[2021-09-20] MEDS: lisinopril 2.5 MG TAB PO SCH (08:26)
[2021-09-20] MEDS: LIDOCAINE 5% 1 PATCH TD SCH (08:26)
[2021-09-20] MEDS ORDERED: MAGNESIUM SULFATE / D5W 1 GM/100 ML BAG IV ONE (08:54)
[2021-09-20] MEDS: guaiFENesin 600 MG TABCR PO SCH ×2 (09:53→19:40)
[2021-09-20] MEDS: POTASSIUM CHLORIDE 10 MEQ TABCR PO SCH (09:54)
[2021-09-20] MEDS: TRIAMTERENE/HCTZ 37.5/25MG TAB PO SCH (09:54)
[2021-09-20] MEDS: FEXOFENADINE 60 MG TAB PO SCH ×2 (09:57→19:41)
--- NOTE | 2021-09-20 16:00 | Hospitalist Progress Note ---
Date of Service September 20, 2021 Assessment & Plan (1) Compression fracture: Plan 81-year-old female with PMH of hypothyroidism, pulmonary hypertension, HTN, tricuspid valve regurgitation, CKD stage III, GERD, osteoporosis presented to our ED 09/18 with complaint of low back pain. Of note, patient had been having cough since August 11 and reports being tested positive for COVID a week before prior to arrival. Patient states that about 1 week prior to arrival she had a very harsh cough and sneeze and subsequently developed severe low back pain. The pain had been persistent and progressively getting worse. No radicular pain or bowel or bladder dysfunction noted. No fever or vertebral line tenderness. She is being managed for the following: L1 and L3 compression fracture on the background of osteoporosis Ambulatory dysfunction No history of fall or trauma to low back, patient presenting with coughing fits followed by acute onset of low back pain which has been worsening [see above]. Admitting CT lumbar spine with mild L1 and L3 compression fractures. For pain control, Tylenol, Lidoderm patch, as needed oxycodone for breakthrough pain. Orthospine evaluated, LSO brace to be worn for comfort when she is up and walking. Vitamin D level at upper normal limit at 91.9, discontinued vitamin D supplement, patient will need repeat vitamin D level in few months upon discharge. PT/OT. Patient reports pain under control. Awaiting LSO brace. COVID-19 infection: Patient is vaccinated and boosted twice. Patient reports having cough for about a month prior to arrival, was tested positive a week ago prior to arrival per patient. Patient tested positive for COVID in the ED 09/18. Patient was saturating well on room air at presentation. No indication for COVID-19 directed therapy, incentive spirometer encouraged, continue to monitor. On Room air. Other chronic medical conditions: HTN, CKD stage III, hypothyroidism --> continue/resume home meds as and when appropriate. HCTZ held due to hypercalcemia, will repeat calcium tomorrow and then likely resume if calcium continues to stay normal. DVT prophylaxis: SQ heparin Full code Dispo: PT/OT to eval, awaiting LSO brace, stable medically. Text document was generated using voice recognition software. It may contain grammatical or spelling errors. Kindly contact undersigned for clarification of any documentation item in question. Admission and Anticipated Discharge Date Admission Date: September 18, 2021 Subjective Patient seen and examined at bedside as a follow-up of L1 and L3 compression fracture and ambulatory dysfunction and COVID-19 infection. Patient was lying in bed semiupright, on room air, NAD, no new acute events overnight. Patient reports improvement in her low back pain with pain medications. Patient reports eating okay and wants laxative for BM. Patient denies any radicular pain to her lower extremities. Patient reports improvement in her cough but has post nasal drip while lying down. Patient denies any sore throat/headache/dizziness/chest pain/palpitation/other review of symptoms. Physical Exam Physical Exam: GENERAL: Alert and oriented x3. NAD, on RA. HEENT: No pallor, no icterus. Pupils equal, round and reactive to light. Oral mucosa moist. NECK: No JVD, no neck masses. HEART: S1 and S2 heard. Regular rate and rhythm. No murmur, no gallop. RESPIRATORY SYSTEM: Normal AP diameter. No accessory muscle use. No wheezing, no crackles. ABDOMEN: Soft, bowel sounds present, nontender, no distention. CENTRAL NERVOUS SYSTEM: No facial droop. Speech is clear. Obeys simple commands. Moves extremities. EXTREMITIES: No edema, no erythema seen. No lower back vertebral tenderness Results & Data Results & Data ([facility]) Vital Signs (Past 12 Hours) Vital Signs Temp Pulse Resp BP Pulse Ox O2 Del Method 09/20/21 08:43 Room Air 09/20/21 07:59 36.7 C 61 20 149/68 H 96 Room Air
[2021-09-20] MEDS: BACLOFEN 10 MG TAB PO PRN (17:08)
[2021-09-20] MEDS: DOCUSATE SODIUM/SENNA 50/8.6MG TAB PO SCH (19:40)
[2021-09-20] MEDS ORDERED: LACTULOSE SYRUP 30 GM/45 ML UDP PO STA (21:53)
[2021-09-20] MEDS ORDERED: lisinopril 2.5 MG TAB PO ONE (23:34)
[2021-09-21] MEDS: HEPARIN SOD 5,000 UNIT/0.5 ML VIAL SQ SCH ×3 (05:59→19:54)
[2021-09-21] MEDS: oxyCODONE HCL IR 5 MG TAB (IMMEDIATE RELEASE) PO PRN ×3 (06:00→23:19)
[2021-09-21] MEDS: ACETAMINOPHEN 500 MG TAB PO SCH ×3 (06:00→23:19)
[2021-09-21] MEDS: LEVOTHYROXINE SODIUM 88 MCG TABLET PO SCH (06:00)
[2021-09-21] MEDS: MAGNESIUM OXIDE 400 MG TAB PO SCH (08:13)
[2021-09-21] MEDS: DOCUSATE SODIUM/SENNA 50/8.6MG TAB PO SCH (08:13)
[2021-09-21] MEDS: POTASSIUM CHLORIDE 10 MEQ TABCR PO SCH (08:14)
[2021-09-21] MEDS: FEXOFENADINE 60 MG TAB PO SCH ×2 (08:14→19:52)
[2021-09-21] MEDS: TRIAMTERENE/HCTZ 37.5/25MG TAB PO SCH (08:14)
[2021-09-21] MEDS: lisinopril 5 MG TAB PO SCH (08:14)
[2021-09-21] MEDS: guaiFENesin 600 MG TABCR PO SCH ×2 (08:15→19:53)
[2021-09-21] MEDS: LIDOCAINE 5% 1 PATCH TD SCH (08:15)
[2021-09-21] MEDS: DORZOLAMIDE/TIMOLOL 22.3/6.8MG/ML 10 ML BTL OPB SCH ×2 (08:15→19:53)
[2021-09-21] MEDS: POLYETHYLENE (MIRALAX) 17 GM PACK PO SCH (08:16)
[2021-09-21 09:08] LABS: Creatinine Clr Calc Pharmacy 45.2 ml/min; Est GFR (African American) 67.6 ml/min; Est GFR (Non-African American) 58.3 ml/min
[2021-09-21 09:17] LABS: BUN Creatinine Ratio 26.4 (10-20); Calcium 9.8 mg/dl (8.5-10.1); Magnesium 1.9 mg/dl (1.7-2.4); Potassium 4.2 mmol/L (3.5-5.1)
--- NOTE | 2021-09-21 16:57 | Hospitalist Progress Note ---
Date of Service September 21, 2021 Assessment & Plan (1) Compression fracture: Plan 81-year-old female with PMH of hypothyroidism, pulmonary hypertension, HTN, tricuspid valve regurgitation, CKD stage III, GERD, osteoporosis presented to our ED 09/18 with complaint of low back pain. Of note, patient had been having cough since August 11 and reports being tested positive for COVID a week before prior to arrival. Patient states that about 1 week prior to arrival she had a very harsh cough and sneeze and subsequently developed severe low back pain. The pain had been persistent and progressively getting worse. No radicular pain or bowel or bladder dysfunction noted. No fever or vertebral line tenderness. She is being managed for the following: L1 and L3 compression fracture on the background of osteoporosis Ambulatory dysfunction No history of fall or trauma to low back, patient presenting with coughing fits followed by acute onset of low back pain which has been worsening [see above]. Admitting CT lumbar spine with mild L1 and L3 compression fractures. For pain control, Tylenol, Lidoderm patch, as needed oxycodone for breakthrough pain. Orthospine evaluated, LSO brace to be worn for comfort when she is up and walking. Vitamin D level at upper normal limit at 91.9, discontinued vitamin D supplement, patient will need repeat vitamin D level in few months upon discharge. PT/OT. Patient reports pain under control. Awaiting LSO brace. COVID-19 infection: Patient is vaccinated and boosted twice. Patient reports having cough for about a month prior to arrival, was tested positive a week ago prior to arrival per patient. Patient tested positive for COVID in the ED 09/18. Patient was saturating well on room air at presentation. No indication for COVID-19 directed therapy, incentive spirometer encouraged, continue to monitor. On Room air. Other chronic medical conditions: HTN, CKD stage III, hypothyroidism --> continue/resume home meds as and when appropriate. HCTZ held due to hypercalcemia, will repeat calcium tomorrow and then likely resume if calcium continues to stay normal. DVT prophylaxis: SQ heparin Full code Dispo: PT/OT to eval, awaiting LSO brace, stable medically. Can DC w/ PT/OT recs. Text document was generated using voice recognition software. It may contain grammatical or spelling errors. Kindly contact undersigned for clarification of any documentation item in question. Admission and Anticipated Discharge Date Admission Date: September 18, 2021 Subjective Patient seen and examined at bedside as a follow-up of L1 and L3 compression fracture and ambulatory dysfunction and COVID-19 infection. Patient was lying in bed semiupright, on room air, NAD, no new acute events overnight. Patient reports improvement in her low back pain with pain medications. Patient reports eating okay. Patient denies any radicular pain to her lower extremities. Patient reports cough similar to before, mostly dry. Patient denies any sore throat/headache/dizziness/chest pain/palpitation/other review of symptoms. Physical Exam Physical Exam: GENERAL: Alert and oriented x3. NAD, on RA. HEENT: No pallor, no icterus. Pupils equal, round and reactive to light. Oral mucosa moist. NECK: No JVD, no neck masses. HEART: S1 and S2 heard. Regular rate and rhythm. No murmur, no gallop. RESPIRATORY SYSTEM: Normal AP diameter. No accessory muscle use. No wheezing, no crackles. ABDOMEN: Soft, bowel sounds present, nontender, no distention. CENTRAL NERVOUS SYSTEM: No facial droop. Speech is clear. Obeys simple commands. Moves extremities. EXTREMITIES: No edema, no erythema seen. No lower back vertebral tenderness Results & Data Results & Data ([facility]) Vital Signs (Past 12 Hours) Vital Signs Temp Pulse Resp BP BP Pulse Ox O2 Del Method 09/21/21 15:41 36.6 C 83 20 131/57 L 90 Room Air 09/21/21 08:15 37 C 80 16 151/77 H 93 Room Air 09/21/21 08:22 Room Air
[2021-09-21] MEDS: MoRPHine SULFATE 4 MG/ML 1 ML CARP\\VIAL IV PRN (19:51)
[2021-09-21] MEDS: BENZONATATE 100 MG CAPSULE PO SCH (19:52)
[2021-09-22] MEDS: MoRPHine SULFATE 4 MG/ML 1 ML CARP\\VIAL IV PRN ×3 (03:47→20:56)
[2021-09-22] MEDS: ACETAMINOPHEN 500 MG TAB PO SCH ×3 (06:30→22:21)
[2021-09-22] MEDS: oxyCODONE HCL IR 5 MG TAB (IMMEDIATE RELEASE) PO PRN ×2 (06:31→12:11)
[2021-09-22] MEDS: HEPARIN SOD 5,000 UNIT/0.5 ML VIAL SQ SCH ×3 (06:32→22:21)
[2021-09-22] MEDS: LEVOTHYROXINE SODIUM 88 MCG TABLET PO SCH (06:32)
[2021-09-22] MEDS: LIDOCAINE 5% 1 PATCH TD SCH (09:49)
[2021-09-22] MEDS: DORZOLAMIDE/TIMOLOL 22.3/6.8MG/ML 10 ML BTL OPB SCH ×2 (09:50→20:27)
[2021-09-22] MEDS: BENZONATATE 100 MG CAPSULE PO SCH ×3 (09:52→20:26)
[2021-09-22] MEDS: DOCUSATE SODIUM/SENNA 50/8.6MG TAB PO SCH (09:52)
[2021-09-22] MEDS: POLYETHYLENE (MIRALAX) 17 GM PACK PO SCH (09:52)
[2021-09-22] MEDS: POTASSIUM CHLORIDE 10 MEQ TABCR PO SCH (09:53)
[2021-09-22] MEDS: FEXOFENADINE 60 MG TAB PO SCH ×2 (09:53→20:26)
[2021-09-22] MEDS: MAGNESIUM OXIDE 400 MG TAB PO SCH (09:53)
[2021-09-22] MEDS: lisinopril 5 MG TAB PO SCH (09:53)
[2021-09-22] MEDS: guaiFENesin 600 MG TABCR PO SCH ×2 (09:53→20:26)
[2021-09-22] MEDS: TRIAMTERENE/HCTZ 37.5/25MG TAB PO SCH (09:53)
--- NOTE | 2021-09-22 17:16 | Hospitalist Progress Note ---
Date of Service September 22, 2021 Assessment & Plan (1) Compression fracture: Plan 81-year-old female with PMH of hypothyroidism, pulmonary hypertension, HTN, tricuspid valve regurgitation, CKD stage III, GERD, osteoporosis presented to our ED 09/18 with complaint of low back pain. Of note, patient had been having cough since August 11 and reports being tested positive for COVID a week before prior to arrival. Patient states that about 1 week prior to arrival she had a very harsh cough and sneeze and subsequently developed severe low back pain. The pain had been persistent and progressively getting worse. No radicular pain or bowel or bladder dysfunction noted. No fever or vertebral line tenderness. She is being managed for the following: L1 and L3 compression fracture on the background of osteoporosis Ambulatory dysfunction No history of fall or trauma to low back, patient presenting with coughing fits followed by acute onset of low back pain which has been worsening [see above]. Admitting CT lumbar spine with mild L1 and L3 compression fractures. For pain control, Tylenol, Lidoderm patch, as needed oxycodone for breakthrough pain. Orthospine evaluated, LSO brace to be worn for comfort when she is up and walking. Vitamin D level at upper normal limit at 91.9, discontinued vitamin D supplement, patient will need repeat vitamin D level in few months upon discharge. PT/OT. Patient reports pain under control w/ pain meds. Awaiting LSO brace - finally got today. COVID-19 infection: Patient is vaccinated and boosted twice. Patient reports having cough for about a month prior to arrival, was tested positive a week ago prior to arrival per patient. Patient tested positive for COVID in the ED 09/18. Patient was saturating well on room air at presentation. No indication for COVID-19 directed therapy, incentive spirometer encouraged, continue to monitor. On Room air. Other chronic medical conditions: HTN, CKD stage III, hypothyroidism --> continue/resume home meds as and when appropriate. DVT prophylaxis: SQ heparin Full code Dispo: PT/OT to eval, stable medically. Can DC w/ PT/OT recs. Text document was generated using voice recognition software. It may contain grammatical or spelling errors. Kindly contact undersigned for clarification of any documentation item in question. Admission and Anticipated Discharge Date Admission Date: September 18, 2021 Subjective Patient seen and examined at bedside as a follow-up of L1 and L3 compression fracture and ambulatory dysfunction and COVID-19 infection. Patient was lying in bed semiupright, on room air, NAD, reports more pain but under control w/ pain meds, awaiting LSO brace. Patient reports eating okay and moving bowels ok. Patient denies any radicular pain to her lower extremities. Patient reports cough improving. Patient denies any sore t hroat/headache/dizziness/chest pain/palpitation/other review of symptoms. Physical Exam Physical Exam: GENERAL: Alert and oriented x3. NAD, on RA. HEENT: No pallor, no icterus. Pupils equal, round and reactive to light. Oral mucosa moist. NECK: No JVD, no neck masses. HEART: S1 and S2 heard. Regular rate and rhythm. No murmur, no gallop. RESPIRATORY SYSTEM: Normal AP diameter. No accessory muscle use. No wheezing, no crackles. ABDOMEN: Soft, bowel sounds present, nontender, no distention. CENTRAL NERVOUS SYSTEM: No facial droop. Speech is clear. Obeys simple commands. Moves extremities. EXTREMITIES: No edema, no erythema seen. No lower back vertebral tenderness Results & Data Results & Data ([facility]) Vital Signs (Past 12 Hours) Vital Signs Temp Pulse Resp BP Pulse Ox O2 Del Method 09/22/21 15:38 36.5 C 66 18 113/68 95 Room Air 09/22/21 09:55 Room Air 09/22/21 09:41 36.6 C 62 18 106/58 L 94 Room Air
[2021-09-23] MEDS: MoRPHine SULFATE 4 MG/ML 1 ML CARP\\VIAL IV PRN (00:49)
[2021-09-23] MEDS: ACETAMINOPHEN 500 MG TAB PO SCH ×3 (06:11→22:43)
[2021-09-23] MEDS: LEVOTHYROXINE SODIUM 88 MCG TABLET PO SCH (06:12)
[2021-09-23] MEDS: HEPARIN SOD 5,000 UNIT/0.5 ML VIAL SQ SCH ×3 (06:12→22:43)
[2021-09-23] MEDS: MAGNESIUM OXIDE 400 MG TAB PO SCH (08:43)
[2021-09-23] MEDS: FEXOFENADINE 60 MG TAB PO SCH ×2 (08:43→20:04)
[2021-09-23] MEDS: DOCUSATE SODIUM/SENNA 50/8.6MG TAB PO SCH (08:43)
[2021-09-23] MEDS: lisinopril 5 MG TAB PO SCH (08:43)
[2021-09-23] MEDS: TRIAMTERENE/HCTZ 37.5/25MG TAB PO SCH (08:43)
[2021-09-23] MEDS: guaiFENesin 600 MG TABCR PO SCH ×2 (08:43→20:04)
[2021-09-23] MEDS: BENZONATATE 100 MG CAPSULE PO SCH ×3 (08:43→20:04)
[2021-09-23] MEDS: POTASSIUM CHLORIDE 10 MEQ TABCR PO SCH (08:44)
[2021-09-23] MEDS: LIDOCAINE 5% 1 PATCH TD SCH (08:45)
[2021-09-23] MEDS: DORZOLAMIDE/TIMOLOL 22.3/6.8MG/ML 10 ML BTL OPB SCH ×2 (08:45→20:04)
[2021-09-23] MEDS: POLYETHYLENE (MIRALAX) 17 GM PACK PO SCH (08:46)
--- NOTE | 2021-09-23 18:28 | Hospitalist Progress Note ---
Date of Service September 23, 2021 Assessment & Plan (1) Compression fracture: Plan 81-year-old female with PMH of hypothyroidism, pulmonary hypertension, HTN, tricuspid valve regurgitation, CKD stage III, GERD, osteoporosis presented to our ED 09/18 with complaint of low back pain. Of note, patient had been having cough since August 11 and reports being tested positive for COVID a week before prior to arrival. Patient states that about 1 week prior to arrival she had a very harsh cough and sneeze and subsequently developed severe low back pain. The pain had been persistent and progressively getting worse. No radicular pain or bowel or bladder dysfunction noted. No fever or vertebral line tenderness. She is being managed for the following: L1 and L3 compression fracture on the background of osteoporosis Ambulatory dysfunction No history of fall or trauma to low back, patient presenting with coughing fits followed by acute onset of low back pain which has been worsening [see above]. Admitting CT lumbar spine with mild L1 and L3 compression fractures. For pain control, Tylenol, Lidoderm patch, as needed oxycodone for breakthrough pain. Orthospine evaluated, LSO brace to be worn for comfort when she is up and walking. Vitamin D level at upper normal limit at 91.9, discontinued vitamin D supplement, patient will need repeat vitamin D level in few months upon discharge. PT/OT. Patient reports pain under control w/ pain meds. Awaiting replacement LSO brace. Pt's pain seems reasonably controlled w/ pain meds, she is made aware combined w/ PT/OT and other measures, the pain should slowly continue to improve over the course of time. Pt needs rehab but is adamant on going home, per PT she will require 24/ HH services in that case. COVID-19 infection: Patient is vaccinated and boosted twice. Patient reports having cough for about a month prior to arrival, was tested positive a week ago prior to arrival per patient. Patient tested positive for COVID in the ED 09/18. Patient was saturating well on room air at presentation. No indication for COVID-19 directed therapy, incentive spirometer encouraged, continue to monitor. On Room air. Other chronic medical conditions: HTN, CKD stage III, hypothyroidism --> continue/resume home meds as and when appropriate. DVT prophylaxis: SQ heparin Full code Dispo: PT/OT to eval, stable medically. Can DC w/ PT/OT recs. Text document was generated using voice recognition software. It may contain grammatical or spelling errors. Kindly contact undersigned for clarification of any documentation item in question. Admission and Anticipated Discharge Date Admission Date: September 18, 2021 Subjective Patient seen and examined at bedside as a follow-up of L1 and L3 compression fracture and ambulatory dysfunction and COVID-19 infection. Patient was lying in bed semiupright, on room air, NAD, reports pain under control w/ pain meds, awaiting another LSO brace, the one given yesterday she refused for being too heavy. Patient reports eating okay and moving bowels ok. Patient denies any radicular pain to her lower extremities. Patient reports cough improving. Patient denies any sore throat/headache/dizziness/chest pain/palpitation/other review of symptoms. Physical Exam Physical Exam: GENERAL: Alert and oriented x3. NAD, on RA. HEENT: No pallor, no icterus. Pupils equal, round and reactive to light. Oral mucosa moist. NECK: No JVD, no neck masses. HEART: S1 and S2 heard. Regular rate and rhythm. No murmur, no gallop. RESPIRATORY SYSTEM: Normal AP diameter. No accessory muscle use. No wheezing, no crackles. ABDOMEN: Soft, bowel sounds present, nontender, no distention. CENTRAL NERVOUS SYSTEM: No facial droop. Speech is clear. Obeys simple co mmands. Moves extremities. EXTREMITIES: No edema, no erythema seen. No lower back vertebral tenderness Results & Data Results & Data ([facility]) Vital Signs (Past 12 Hours) Vital Signs Temp Pulse Resp BP Pulse Ox O2 Del Method 09/23/21 15:23 37.1 C 76 20 116/66 91 Room Air
[2021-09-23] MEDS: oxyCODONE HCL IR 5 MG TAB (IMMEDIATE RELEASE) PO PRN (20:04)
[2021-09-24] MEDS: oxyCODONE HCL IR 5 MG TAB (IMMEDIATE RELEASE) PO PRN ×3 (02:32→17:00)
[2021-09-24] MEDS: HEPARIN SOD 5,000 UNIT/0.5 ML VIAL SQ SCH ×3 (05:51→21:26)
[2021-09-24] MEDS: LEVOTHYROXINE SODIUM 88 MCG TABLET PO SCH (05:51)
[2021-09-24] MEDS: BACLOFEN 10 MG TAB PO PRN ×2 (05:51→21:29)
[2021-09-24] MEDS: ACETAMINOPHEN 500 MG TAB PO SCH ×3 (05:51→21:26)
[2021-09-24] MEDS: POTASSIUM CHLORIDE 10 MEQ TABCR PO SCH (08:08)
[2021-09-24] MEDS: DOCUSATE SODIUM/SENNA 50/8.6MG TAB PO SCH (08:08)
[2021-09-24] MEDS: guaiFENesin 600 MG TABCR PO SCH ×2 (08:08→21:27)
[2021-09-24] MEDS: BENZONATATE 100 MG CAPSULE PO SCH ×3 (08:08→21:26)
[2021-09-24] MEDS: lisinopril 5 MG TAB PO SCH (08:09)
[2021-09-24] MEDS: LIDOCAINE 5% 1 PATCH TD SCH (08:09)
[2021-09-24] MEDS: MAGNESIUM OXIDE 400 MG TAB PO SCH (08:09)
[2021-09-24] MEDS: TRIAMTERENE/HCTZ 37.5/25MG TAB PO SCH (08:09)
[2021-09-24] MEDS: POLYETHYLENE (MIRALAX) 17 GM PACK PO SCH (08:10)
[2021-09-24] MEDS: DORZOLAMIDE/TIMOLOL 22.3/6.8MG/ML 10 ML BTL OPB SCH ×2 (08:10→21:27)
--- NOTE | 2021-09-24 18:16 | Hospitalist Progress Note ---
Date of Service September 24, 2021 Assessment & Plan (1) Compression fracture: Plan 81-year-old female with PMH of hypothyroidism, pulmonary hypertension, HTN, tricuspid valve regurgitation, CKD stage III, GERD, osteoporosis presented to our ED 09/18 with complaint of low back pain. Of note, patient had been having cough since August 11 and reports being tested positive for COVID a week before prior to arrival. Patient states that about 1 week prior to arrival she had a very harsh cough and sneeze and subsequently developed severe low back pain. The pain had been persistent and progressively getting worse. No radicular pain or bowel or bladder dysfunction noted. No fever or vertebral line tenderness. She is being managed for the following: L1 and L3 compression fracture on the background of osteoporosis Ambulatory dysfunction No history of fall or trauma to low back, patient presenting with coughing fits followed by acute onset of low back pain which has been worsening [see above]. Admitting CT lumbar spine with mild L1 and L3 compression fractures. For pain control, Tylenol, Lidoderm patch, as needed oxycodone for breakthrough pain. Orthospine evaluated, LSO brace to be worn for comfort when she is up and walking. Vitamin D level at upper normal limit at 91.9, discontinued vitamin D supplement, patient will need repeat vitamin D level in few months upon discharge. - patient will also need endocrine or PCP follow up to reinitiate denosumab or start on bisphosphonate for osteoporosis as this is likely an osteoporotic fracture PT/OT. Patient reports pain under control w/ pain meds. Awaiting replacement LSO brace. Pt's pain seems reasonably controlled w/ pain meds, she is made aware combined w/ PT/OT and other measures, the pain should slowly continue to improve over the course of time. Pt needs rehab but is adamant on going home, per PT she will require 24/7 HH services in that case - amenable to Rehab but complained of too much pain to go today COVID-19 infection: Patient is vaccinated and boosted twice. Patient reports having cough for about a month prior to arrival, was tested positive a week ago prior to arrival per patient. Patient tested positive for COVID in the ED 09/18. Patient was saturating well on room air at presentation. No indication for COVID-19 directed therapy, incentive spirometer encouraged, continue to monitor. On Room air. Other chronic medical conditions: HTN, CKD stage III, hypothyroidism --> continue/resume home meds as and when appropriate. DVT prophylaxis: SQ heparin Full code Dispo: PT/OT to eval, stable medically. Can DC w/ PT/OT recs. Bobby Haywood MD [facility] Medicine Admission and Anticipated Discharge Date Admission Date: September 18, 2021 Subjective The patient is an 81 year old woman with pmh hypothyroidism, pHTN, HTN, TVR, CKD stage 3, GERD, osteoporosis who presented with low back pain, found oth ave L1 and L3 compression fractures. Seen by ortho who do not recomend surgery but MEI brace and PT. Patient receiving pain control and pending discharge to home with PT services or to [facility]. Patient reports pain is improved from admission but still with some pain and does not want to move. Encouraged her that moving will improve her pain quicker as it will build more muscle to support the fracture. Patient denies any sore throat/headache/dizziness/chest pain/palpitation/other review of symptoms. Review of Systems Review of Systems: All systems reviewed & are unremarkable except as noted in Subjective ROS per HPI, all other systems reviewed and negative Physical Exam Physical Exam: GENERAL: Alert and oriented x3. NAD, on RA. HEENT: No pallor, no icterus. Pupils equal, round and reactive to light. Oral mucosa moist. NECK: No JVD, no neck masses. HEART: S1 and S2 heard. Regular rate and rhythm. No murmur, no gallop. RESPIRATORY SYSTEM: Normal AP diameter. No accessory muscle use. No wheezing, no crackles. ABDOMEN: Soft, bowel sounds present, nontender, no distention. CENTRAL NERVOUS SYSTEM: No facial droop. Speech is clear. Obeys simple commands. Moves extremities. EXTREMITIES: No edema, no erythema seen. No lower back vertebral tenderness Results & Data Results & Data ([facility]) Vital Signs (Past 12 Hours) Vital Signs Temp Pulse Resp BP Pulse Ox O2 Del Method 09/24/21 11:05 36.6 C 68 18 159/74 H 94 Room Air Medications Administered Current Inpatient Medications Acetaminophen (Acetaminophen 500 Mg Tab) 1,000 mg PO Q8H ALESSAN[facility]O Stop: 10/18/21 14:59 Last Admin: 09/24/21 12:08 Dose: 1,000 mg Baclofen (Baclofen 10 Mg Tab) 10 mg PO BID PRN PRN Reason: Pain Stop: 10/18/21 19:00 Last Admin: 09/24/21 05:51 Dose: 10 mg Benzonatate (Benzonatate 100 Mg Capsule) 100 mg PO TID [facility] Stop: 10/21/21 20:59 Last Admin: 09/24/21 12:08 Dose: 100 mg Dorzolamide/Timolol (Dorzolamide/Timolol 22.3/6.8mg/Ml 10 Ml Btl) 1 drops OPB BID [facility] Stop: 10/18/21 20:59 Last Admin: 09/24/21 08:10 Dose: 1 drops Guaifenesin (Guaifenesin 600 Mg Tabcr) 600 mg PO Q12 [facility] Stop: 10/20/21 08:59 Last Admin: 09/24/21 08:08 Dose: 600 mg Heparin Sodium (Porcine) (Heparin Sod 5,000 Unit/0.5 Ml Vial) 5,000 units SQ Q8 [facility] Stop: 10/18/21 21:59 Last Admin: 09/24/21 12:10 Dose: Not Given Levothyroxine Sodium (Levothyroxine Sodium 88 Mcg Tablet) 88 mcg PO DAILYBB [facility] Stop: 10/19/21 06:29 Last Admin: 09/24/21 05:51 Dose: 88 mcg Lidocaine (Lidocaine 5% 1 Patch) 1 patch TD QAM [facility] Stop: 10/19/21 08:59 Last Admin: 09/24/21 08:09 Dose: 1 patch Lisinopril (Lisinopril 5 Mg Tab) 5 mg PO DAILY [facility] Stop: 10/21/21 08:59 Last Admin: 09/24/21 08:09 Dose: 5 mg Magnesium Oxide (Magnesium Oxide 400 Mg Tab) 400 mg PO QAM [facility] Stop: 10/21/21 08:59 Last Admin: 09/24/21 08:09 Dose: 400 mg Miscellaneous (Remove Lidoderm Patch) 1 each N/A DAILY@2100 [facility] Stop: 10/18/21 20:59 Last Admin: 09/23/21 20:05 Dose: 1 each Morphine Sulfate (Morphine Sulfate 4 Mg/Ml 1 Ml Carp\Vial) 4 mg IV Q4H PRN PRN Reason: Pain (6,7,8,9,10) Stop: 10/02/21 14:33 Last Admin: 09/23/21 00:49 Dose: 4 mg Ondansetron HCl (Ondansetron Inj 2 Mg/Ml 2 Ml Vial) 4 mg IV Q6H PRN PRN Reason: Nausea Stop: 10/18/21 19:00 Last Admin: 09/22/21 10:06 Dose: 4 mg Oxycodone HCl (Oxycodone Hcl Ir 5 Mg Tab (Immediate Release)) 5 mg PO Q6H PRN PRN Reason: MODERATE Pain (4,5,6) & Pre PT Stop: 10/02/21 14:33 Last Admin: 09/24/21 17:00 Dose: 5 mg Polyethylene Glycol (Polyethylene (Miralax) 17 Gm Pack) 17 gm PO DAILY [facility] Stop: 10/19/21 08:59 Last Admin: 09/24/21 08:10 Dose: 17 gm Potassium Chloride (Potassium Chloride 10 Meq Tabcr) 30 meq PO DAILY [facility] Stop: 10/20/21 08:59 Last Admin: 09/24/21 08:08 Dose: 30 meq Senna/Docusate Sodium (Docusate Sodium/Senna 50/8.6mg Tab) 1 tab PO QAM [facility] Stop: 10/20/21 19:14 Last Admin: 09/24/21 08:08 Dose: 1 tab Triamterene/Hydrochlorothiazide (Triamterene/Hctz 37.5/25mg Tab) 1 tab PO DAILY [facility] Stop: 10/20/21 08:59 Last Admin: 09/24/21 08:09 Dose: 1 tab
[2021-09-25] MEDS: oxyCODONE HCL IR 5 MG TAB (IMMEDIATE RELEASE) PO PRN ×3 (01:53→17:04)
[2021-09-25] MEDS: LEVOTHYROXINE SODIUM 88 MCG TABLET PO SCH (06:36)
[2021-09-25] MEDS: ACETAMINOPHEN 500 MG TAB PO SCH ×2 (06:36→13:08)
[2021-09-25] MEDS: HEPARIN SOD 5,000 UNIT/0.5 ML VIAL SQ SCH ×2 (06:36→13:07)
[2021-09-25] MEDS: BENZONATATE 100 MG CAPSULE PO SCH ×2 (08:36→13:08)
[2021-09-25] MEDS: MAGNESIUM OXIDE 400 MG TAB PO SCH (08:36)
[2021-09-25] MEDS: lisinopril 5 MG TAB PO SCH (08:36)
[2021-09-25] MEDS: TRIAMTERENE/HCTZ 37.5/25MG TAB PO SCH (08:36)
[2021-09-25] MEDS: guaiFENesin 600 MG TABCR PO SCH (08:37)
[2021-09-25] MEDS: DOCUSATE SODIUM/SENNA 50/8.6MG TAB PO SCH (08:37)
[2021-09-25] MEDS: POTASSIUM CHLORIDE 10 MEQ TABCR PO SCH (08:37)
[2021-09-25] MEDS: POLYETHYLENE (MIRALAX) 17 GM PACK PO SCH (08:37)
[2021-09-25] MEDS: DORZOLAMIDE/TIMOLOL 22.3/6.8MG/ML 10 ML BTL OPB SCH (08:38)
[2021-09-25] MEDS: LIDOCAINE 5% 1 PATCH TD SCH (08:39)
--- NOTE | 2021-09-25 17:41 | Discharge Summary ---
Date of Service September 25, 2021 Admission HPI Per Admitting Provider 81-year-old female with PMH hypothyroidism, pulmonary hypertension, HTN, tricuspid valve regurgitation, CKD stage III, GERD, osteoporosis, and other problems listed below who presents to the ED for evaluation of back pain. Patient reports that she has had a cough since August 11. Reports she took a COVID test at that time and was negative. Last week, she was retested by PCPs office and tested positive for COVID-19. Patient reports that about 1 week ago she had a very harsh cough and sneeze and subsequently developed severe low back pain. Patient reports pain has been persistent and progressively getting worse . She denies any bowel or bladder dysfunction. No radiation of the pain into either leg. Denies lower extremity weakness. Patient reports pain with minimal movement. She reports cough has been nonproductive. She reports some mild shortness of breath. No fevers or chills. Denies chest pain or palpitations. No lightheadedness, dizziness, diaphoresis, syncopal events. Reports her appetite has remained good, denies abdominal pain, nausea, vomiting, diarrhea. No urinary symptoms. In the ED, patient continues to test positive for COVID- 19. She is saturating well on room air. CXR shows Possible small patchy left basilar airspace opacity. CT lumbar spine shows subacute mild superior endplate compression fractures at L1 and L3. Patient was given IV morphine, IV Zofran, and a Lidoderm patch. Admission Exam Per Admitting Provider Constitutional: WD/WN, vitals as above Eyes: PERRL, conjunctivae normal, anicteric sclerae ENMT: external ear and nose normal, oropharynx normal Respiratory: normal respiratory effort; no respiratory distress Auscultation: + diminished lung sounds (Bilateral bases) Cardiovascular: Rate/Rhythm: regular rate and regular rhythm Vessels: normal peripheral pulses Extremities: no edema Gastrointestinal (Abdomen): normal bowel sounds, soft, nontender, no hepatosplenomegaly Musculoskeletal: no cyanosis or clubbing, extremities motor strength 5/5 Spine: straight leg raise negative bilaterally Skin: no rashes, warm and dry Neurologic: PERRL, EOMI, accommodation nl, no face palsy, no dysarthria Psychiatric: A+Ox3, euthymic affect Principal Diagnosis L1, L3 compression fractures Discharge Exam GENERAL: Alert and oriented x3. NAD, on RA. HEENT: No pallor, no icterus. Pupils equal, round and reactive to light. Oral mucosa moist. NECK: No JVD, no neck masses. HEART: S1 and S2 heard. Regular rate and rhythm. No murmur, no gallop. RESPIRATORY SYSTEM: Normal AP diameter. No accessory muscle use. No wheezing, no crackles. ABDOMEN: Soft, bowel sounds present, nontender, no distention. CENTRAL NERVOUS SYSTEM: No facial droop. Speech is clear. Obeys simple commands. Moves extremities. EXTREMITIES: No edema, no erythema seen. No lower back vertebral tenderness Discharge Data Allergies Allergy/AdvReac Type Severity Reaction Status Date / Time mold Allergy Intermediate Cough Verified 09/18/21 13:39 propoxyphene Allergy Intermediate RASH,LIGHTHEADED,PUFFY Verified 09/18/21 13:39 AND RED FACE alendronate sodium Allergy Unknown COULDN'T Verified 09/18/21 13:39 SWALLOW latex Allergy Unknown PER Verified 10/13/16 05:37 NURSING ASSESSMENT (PLEASE CLARIFY WITH PATIENT) pollen extracts AdvReac Intermediate POST NASAL Verified 09/18/21 13:39 DRIP adhesive AdvReac Mild RASH WITH Verified 10/13/16 11:24 OLDER TAPE-PAPER TAPE OK Consultations 09/18/21 13:51 ED Decision to Admit Stat 09/18/21 19:01 Consult Orthopedic Surgery Routine Ordered Studies 09/18/21 10:27 CT lumbar spine wo con Stat Hospital Course (1) Compression fracture: 81-year-old female with PMH of hypothyroidism, pulmonary hypertension, HTN, tricuspid valve regurgitation, CKD stage III, GERD, osteoporosis presented to our ED 09/18 with complaint of low back pain. Of note, patient had been having cough since August 11 and reports being tested positive for COVID a week before prior to arrival. Patient states that about 1 week prior to arrival she had a very harsh cough and sneeze and subsequently developed severe low back pain. The pain had been persistent and progressively getting worse. No radicular pain or bowel or bladder dysfunction noted. No fever or vertebral line tenderness. She is being managed for the following: L1 and L3 compression fracture on the background of osteoporosis Ambulatory dysfunction No history of fall or trauma to low back, patient presenting with coughing fits followed by acute onset of low back pain which has been worsening [see above]. Admitting CT lumbar spine with mild L1 and L3 compression fractures. For pain control, Tylenol, Lidoderm patch, as needed oxycodone for breakthrough pain. Orthospine evaluated, LSO brace to be worn for comfort when she is up and walking. Vitamin D level at upper normal limit at 91.9, discontinued vitamin D supplement, patient will needrepeat vitamin D level in few months upon discharge. -patient will also need endocrine or PCP follow up to reinitiate denosumab or start on bisphosphonate for osteoporosis as this is likely an osteoporotic fracture PT/OT. Patient reports pain under control w/ pain meds. Awaiting replacement LSO brace. Pt's pain seems reasonably controlled w/ pain meds, she is made aware combined w/ PT/OT and other measures, the pain should slowly continue to improve over the course of time. Pt needs rehab but is adamant on going home, per PT she will require 24/ HH services in that case - amenable to Rehab but complained of too much pain to go today Plan COVID-19 infection:Patient is vaccinated and boosted twice. Patient reports having cough for about a month prior to arrival, was tested positive a week ago prior to arrival per patient. Patient tested positive for COVID in the ED 09/18. Patient was saturating well on room air at presentation. No indication for COVID-19 directed therapy, incentive spirometer encouraged, continue to monitor. On Room air. Other chronic medical conditions:HTN, CKD stage III, hypothyroidism --> continue/resume home meds as and when appropriate. DVT prophylaxis: SQ heparin Full code Dispo: PT/OT to evar, stable medically. Can DC w/ PT/OT recs. Bobby Haywood MD [facility] Medicine Admission and Anticipated Discharge Date Admission Date: September 18, 2021 Total Time Total Time Spent Total Time Spent (In Minutes): 25 Total Time Includes: Examination of the Patient, Discharge Planning and Medication Reconciliation Discharge Plan Discharge Items Patient Disposition: Transfer Inpatient Rehab Fac Reason For Visit: COMPRESSION FRACTURE Discharge Diagnosis: L1, L3 compression fractures Activity: As commented below Lifting: Gradually increase as tolerated Non-emergency contact: Primary Care Provider and Surgeon Call non-emergency contact if: you have any medication questions, your symptoms worsen and your pain is worsening Follow-up/Referrals: Zenon Hernandez DO [Surgeon] - Joann Reyes MD [Outside Practitioners] - Diet: Heart Healthy Addtl Attending Provider Instructions: You were admitted for compression fractures of your lumbar spine. You were seen by orthopedic surgery who recomend management with brace and rehab. PT/OT evaluated you and recommended inpatient rehab for recovery and building strength. You were accepted at [facility] for rehab. Pain control will help reduce the pain but will not take it away completely, the pain should continue to improve over the coming days to weeks. Pending Studies at Discharge: No Stand-Alone Forms: My [facility] Skilled Items Patient informed of condition?: Yes DNR: No Discharge Level of Care: Acute rehab Communicable Disease: Yes Discharge Prognosis: Stable Lines: None Urinary Catheter: No Medications and DC Order Prescriptions: New sennosides-docusate sodium [Senokot-S] 8.6-50 mg Tablet 1 tab PO QAM Qty: 30 0RF acetaminophen [Tylenol Extra Strength] 500 mg Tablet 1,000 mg PO Q8H PRN (Reason: pain) Qty: 30 0RF lisinopril [Zestril] 5 mg Tablet 5 mg PO DAILY Qty: 30 0RF oxycodone 5 mg Tablet 5 mg PO Q6H PRN (Reason: severe pain (scale score 7-10)) Qty: 20 0RF guaifenesin [Mucinex] 600 mg Tablet Extended Release 12hr 600 mg PO Q12 PRN (Reason: cough) Qty: 20 0RF lidocaine 5 % Adhesive Patch,Medicated 1 patch transdermal QAM Qty: 30 0RF Remove Lidoderm Patch 1 ea Not Applicable DAILY@2100 Qty: 10 1RF Continued baclofen 10 mg tablet 10 mg PO BID PRN (Reason: Pain) benzonatate 100 mg capsule 100 mg PO TID PRN (Reason: Cough) potassium chloride 10 mEq tablet extended release 30 meq PO DAILY levothyroxine 88 mcg tablet 88 mcg PO DAILYBB dorzolamide-timolol 22.3-6.8 mg/mL drops 1 drp OPB BID triamterene-hydrochlorothiazid 75-50 mg tablet 1 tab PO DAILY cyanocobalamin (vitamin B-12) 1,000 mcg/mL Solution 1,000 mcg IM MONTHLY cholecalciferol (vitamin D3) [Vitamin D3] 25 mcg (1,000 unit) Capsule 25 mcg PO DAILY biotin 5,000 mcg Tablet,Disintegrating 5,000 mcg PO DAILY krill oil 500 mg Capsule 500 mg PO DAILY polyethylene glycol 3350 [Miralax] 17 gram/dose Powder 17 g PO DAILY PRN (Reason: Constipation) Discontinued lisinopril 2.5 mg tablet 2.5 mg PO DAILY Discharge Orders: Discharge Order (Routine); Ordered 09/25/21 Ordered By: Bobby Haywood Admission Data Admit Date/Time: 09/18/21 14:38 Attending Provider: Bobby aHywood Admit Provider: Francis Farrell Primary Care Provider: Rosie Aldana Other Providers: Francis Farrell ; Zenon Hernandez ; [facility]
== END 2021-09-25 17:33 | DRG 542 ==
LOC: ED 09:44 → EDINP 14:38 → SUATTDRO 14:38 → 2W 19:00 → 3N 09-25 00:07
DX: N18.30 Chronic kidney disease, stage 3 unspecified; M80.08XA Age-related osteoporosis with current pathological fracture, vertebra(e), initial encounter for fracture; U07.1 COVID-19; J12.82 Pneumonia due to coronavirus disease 2019; Z91.040 Latex allergy status; I36.1 Nonrheumatic tricuspid (valve) insufficiency; K21.9 Gastro-esophageal reflux disease without esophagitis; I12.9 Hypertensive chronic kidney disease with stage 1 through stage 4 chronic kidney disease, or unspecified chronic kidney disease; I27.20 Pulmonary hypertension, unspecified; Z96.652 Presence of left artificial knee joint; K57.30 Diverticulosis of large intestine without perforation or abscess without bleeding; Z79.890 Hormone replacement therapy; E03.9 Hypothyroidism, unspecified; E83.52 Hypercalcemia